=== PATIENT | female | born 1940 | race Caucasian/White ===

== ENCOUNTER 2016-12-27 11:57 | Emergency (ER) | payer OTHER ==
[~2016-12-27] VITALS: Ht 154.9 cm; Wt 50.0 kg
[~2016-12-27 11:57] MED LIST: AMBI10TA PO; COPAXONE SQ; FLUO20SO3 PO
[2016-12-27 12:05] VITALS: BP 130/60; PULSE 77; RESP 18; TEMP 97.9; O2SAT 96
--- NOTE | 2016-12-27 12:28 | PD ---
HPI Chief Complaint: Fall Time Seen by Provider: 12:04 Travel History International Travel<30 days: No Contact w/Intl Traveler<30days: No Traveled to known affect area: No History of Present Illness HPI The patient was seen and examined in the presence of the nurse. This patient has history of MS and Parkinson's and falls frequently. She has an unsteady gait chronically. Today she lost her balance and fell which is not at all unusual for her. She landed on her left hip. She complains of some left hip pain. She has history of bilateral hip replacement. She did not strike her head or neck. Complains of no head or neck pain. There was no LOC. Duration 2 hours. No alleviating factors. Severity is moderate PFSH Past Medical History Arthritis: No Asthma: No Autoimmune Disease: No Blood Disorders: No Anxiety: Yes Depression: No Heart Rhythm Problems: No Cancer: No Cardiovascular Problems: No High Cholesterol: No Chemotherapy: No Chest Pain: No Congestive Heart Failure: No COPD: No Cerebrovascular Accident: No Diabetes: No Diminished Hearing: No Endocrine: No Gastrointestinal Disorders: Yes GERD: Yes Glaucoma: No Genitourinary: No Headaches: No Hepatitis: No Hiatal Hernia: No Hypertension: Yes Immune Disorder: No Kidney Stones: No Musculoskeletal: Yes (MS) Neurologic: Yes Psychiatric: No Reproductive: No Respiratory: No Migraines: No Myocardial Infarction: No Radiation Therapy: No Renal Failure: No Seizures: No Sickle Cell Disease: No Sleep Apnea: No Thyroid Disease: No Ulcer: Yes Menopausal: Yes Past Surgical History Abdominal Surgery: Yes (hysterectomy,ruptured bowel) AICD: No Appendectomy: No Cardiac Surgery: No Cholecystectomy: Yes Ear Surgery: No Endocrine Surgery: No Eye Surgery: No Genitourinary Surgery: No Gynecologic Surgery: No Joint Replacement: Yes (HIP) Neurologic Surgery: No Oral Surgery: No Pacemaker: No Thoracic Surgery: No Other Surgery: Yes Social History Alcohol Use: No Tobacco Use: No Substance Use: No Allergies-Medications (Allergen,Severity, Reaction): Coded Allergies: Codeine (Verified Allergy, Severe, Hallucinations, 12/27/16) Reported Meds & Prescriptions Reported Meds & Active Scripts Active Reported Oxycodone (Oxycodone HCl) 5 Mg Cap 5 Mg PO Q4H PRN Baclofen 10 Mg Tab 10 Mg PO Q8HR PRN [Copaxone] 20 Mg SQ DAILY Review of Systems General / Constitutional: No: Fever Eyes: No: Visual changes HENT: No: Headaches Cardiovascular: No: Chest Pain or Discomfort Respiratory: No: Shortness of Breath Gastrointestinal: No: Abdominal Pain Genitourinary: No: Dysuria Musculoskeletal: Positive: Limited ROM, Pain Skin: No Rash Neurologic: Positive: Ataxia, No: Weakness Psychiatric: No: Depression Endocrine: No: Polydipsia Hematologic/Lymphatic: No: Easy Bruising Physical Exam Narrative GENERAL: Well-nourished, well-developed patient in no apparent distress. SKIN: Focused skin assessment reveals no rash and nodules. Skin is Warm and dry. HEAD: Atraumatic. Normocephalic. EYES: Pupils equal and round. No scleral icterus. No injection or drainage. ENT: No nasal bleeding or discharge. Mucous membranes pink and moist. NECK: Trachea midline. No JVD. CARDIOVASCULAR: Regular rate and rhythm. No murmur appreciated. RESPIRATORY: No accessory muscle use. Clear to auscultation. Breath sounds equal bilaterally. GASTROINTESTINAL: Abdomen soft, non-tender, nondistended. Hepatic and splenic margins not palpable. MUSCULOSKELETAL: The left leg is slightly inwardly rotated but patient states this is chronic since her last hip surgery. No clubbing. No cyanosis. No edema. No long bone tenderness NEUROLOGICAL: Awake and alert. No obvious cranial nerve deficits. Motor grossly within normal limits. Normal speech. PSYCHIATRIC: Appropriate mood and affect; insight and judgment normal. Data Data Last Documented VS Vital Signs Date Time Temp Pulse Resp B/P Pulse Ox O2 Delivery O2 Flow Rate FiO2 12/27/16 12:28 77 18 97 Room Air 12/27/16 12:05 97.9 130/60 Orders Hip, Lat Only W Ap Pelvis (12/27/16 ) MDM Medical Decision Making Medical Screen Exam Complete: Yes Emergency Medical Condition: Yes Medical Record Reviewed: Yes Differential Diagnosis Hip dislocation, pelvic fracture, femur fracture Narrative Course I have reviewed the patient's electronic medical record. I reviewed her pelvis x-ray which shows no fracture I Reviewed her left hip x-ray which shows no fracture dislocation Stable for outpatient follow-up She has both walker and wheelchair at home The patient was advised to follow up with their physician and return if they worsen. Diagnosis Primary Impression: Contusion of left hip, initial encounter Additional Instructions: The patient was advised to follow up with their physician and return if they worsen. Med/Other Pt SpecificInfo: Other Disposition: 01 DISCHARGE HOME Condition: Stable Cortes Eid MD Dec 27, 2016 12:28
--- NOTE | 2016-12-27 12:45 | RADRPT ---
EXAM DATE/TIME: 12/27/2016 12:31 This report includes an Addendum and supersedes previous reports for this exam. [facility] COMPARISON: No previous studies available for comparison. INDICATIONS : Left hip pain after fall today. MEDICAL HISTORY : None. SURGICAL HISTORY : Bilateral hip replacements. ENCOUNTER: Initial ACUITY: 1 day PAIN SCORE: 10/10 LOCATION: Left hip. FINDINGS: The patient is status post bilateral hip arthroplasty. The femoral and acetabular components are inta ct with no evidence of fracture or loosening. There is mild osteopenia. Patient is status post kyphop lasty at the L5 level. CONCLUSION: 1. Status post bilateral arthroplasty with no evidence of fracture or malalignment. Dread Man MD on December 27, 2016 at 12:43 Board Certified Radiologist. This report was verified electronically. ADDENDUM: Hairline nondisplaced fractures are identified through the left superior and inferior pubic rami. Hector Coleman MD on December 27, 2016 at 13:54 Board Certified Radiologist. This report was verified electronically.
[2016-12-27] MEDS ORDERED: BACL10TA PO (13:11)
[2016-12-27] MEDS ORDERED: OXYC1CAP PO (13:12)
[2016-12-27] MEDS ORDERED: AMBI10TA PO (13:14)
[2016-12-27] MEDS ORDERED: AMLO5TAB2 PO (13:14)
== END 2016-12-27 14:30 | disposition home or self-care (01) ==
LOC: NEPE 11:57
DX: S70.02XA Contusion of left hip, initial encounter (principal); G35 Multiple sclerosis; G20 Parkinson's disease; F41.9 Anxiety disorder, unspecified; K21.9 Gastro-esophageal reflux disease without esophagitis; I10 Essential (primary) hypertension; Z88.5 Allergy status to narcotic agent; Z79.899 Other long term (current) drug therapy; W18.30XA Fall on same level, unspecified, initial encounter
CPT/HCPCS: 73501; 99283

== ENCOUNTER 2017-05-21 13:40 | Inpatient (IN) | payer OTHER, MEDICARE ==
[2017-05-21] VITALS (7 sets, daily range): BP systolic 129–174; BP diastolic 59–84; PULSE 67–72; RESP 18–24; TEMP 98.1–99.5; O2SAT 94–99
[~2017-05-21] VITALS: Ht 160 cm; Wt 65.0 kg
[~2017-05-21 13:40] MED LIST changes: +AMLO5TAB2 PO; +BACL10TA PO; -FLUO20SO3 PO; +OXYC1CAP PO
--- NOTE | 2017-05-21 13:57 | PD ---
HPI Chief Complaint: Altered Mental Status Time Seen by Provider: 13:53 Travel History International Travel<30 days: No Contact w/Intl Traveler<30days: No Traveled to known affect area: No History of Present Illness HPI 76-year-old female with history of multiple sclerosis, Parkinson's, questionable history of dementia per EMS, presents via EMS for evaluation of altered mental status. History is only obtainable via EMS at this time. They report that the patient lives with her . Over the past 3 days she has been becoming increasingly difficult to arouse. Symptoms persisted and worsened and this is what prompted evaluation today. At this point in time the patient is making grunting noises, has obvious expiratory wheezing. PFSH Past Medical History Arthritis: No Asthma: No Autoimmune Disease: No Blood Disorders: No Anxiety: Yes Depression: No Heart Rhythm Problems: No Cancer: No Cardiovascular Problems: No High Cholesterol: No Chemotherapy: No Chest Pain: No Congestive Heart Failure: No COPD: Yes Cerebrovascular Accident: No Diabetes: No Diminished Hearing: No Endocrine: No Gastrointestinal Disorders: Yes GERD: Yes Glaucoma: No Genitourinary: No Headaches: No Hepatitis: No Hiatal Hernia: No Hypertension: Yes Immune Disorder: No Kidney Stones: No Musculoskeletal: Yes (MS) Neurologic: Yes Psychiatric: No Reproductive: No Respiratory: No Migraines: No Myocardial Infarction: No Radiation Therapy: No Renal Failure: No Seizures: No Sickle Cell Disease: No Sleep Apnea: No Thyroid Disease: No Ulcer: Yes Menopausal: Yes Past Surgical History Abdominal Surgery: Yes (ruptured bowel) AICD: No Appendectomy: No Cardiac Surgery: No Cholecystectomy: Yes Ear Surgery: No Endocrine Surgery: No Eye Surgery: No Genitourinary Surgery: No Gynecologic Surgery: No Joint Replacement: Yes (HIP) Neurologic Surgery: No Oral Surgery: No Pacemaker: No Thoracic Surgery: No Other Surgery: Yes Social History Alcohol Use: No Tobacco Use: No Substance Use: No Allergies-Medications (Allergen,Severity, Reaction): Coded Allergies: codeine (Unverified Allergy, Severe, Hallucinations, 12/30/16) Reported Meds & Prescriptions Reported Meds & Active Scripts Active Reported Amlodipine (Amlodipine Besylate) 5 Mg Tab 5 Mg PO DAILY Ambien (Zolpidem Tartrate) 10 Mg Tab 10 Mg PO HS PRN Oxycodone (Oxycodone HCl) 5 Mg Cap 5 Mg PO Q4H PRN Baclofen 10 Mg Tab 10 Mg PO Q8HR PRN [Copaxone] 20 Mg SQ DAILY Review of Systems ROS Limitations: Clinical Condition, Altered Mental Status Except as stated in HPI: all other systems reviewed are Neg Physical Exam Exam Limitations: Clinical Condition, Altered Mental Status Narrative GENERAL: Well-developed well-nourished female in no acute distress SKIN: Warm and dry. HEAD: Atraumatic. Normocephalic. EYES: Pupils pinpoint and round. No scleral icterus. No injection or drainage. ENT: No nasal bleeding or discharge. Mucous membranes pink and moist. NECK: Trachea midline. No JVD. CARDIOVASCULAR: Regular rate and rhythm. No murmur appreciated. RESPIRATORY: No accessory muscle use. Expiratory wheezing. Breath sounds equal bilaterally. GASTROINTESTINAL: Abdomen soft, non-tender, nondistended. Hepatic and splenic margins not palpable. MUSCULOSKELETAL: No obvious deformities. No clubbing. No cyanosis. No edema. NEUROLOGICAL: Obtunded eyes are spontaneously opened but the patient does not respond to painful or verbal stimuli. Data Data Last Documented VS Vital Signs Date Time Temp Pulse Resp B/P (MAP) Pulse Ox O2 Delivery O2 Flow Rate FiO2 05/21/17 14:22 94 21 05/21/17 14:11 64 19 Room Air 05/21/17 14:06 99.5 05/21/17 13:55 148/67 (94) Orders Orders Electrocardiogram (05/21/17 13:53) Complete Blood Count With Diff (05/21/17 13:53) Comprehensive Metabolic Panel (05/21/17 13:53) Creatine Kinase (Cpk) (05/21/17 13:53) Prothrombin Time / Inr (Pt) (05/21/17 13:53) Act Partial Throm Time (Ptt) (05/21/17 13:53) Troponin I (05/21/17 13:53) Urinalysis - C+S If Indicated (05/21/17 13:53) Chest, Single Ap (05/21/17 13:53) Ct Brain W/O Iv Contrast(Rout) (05/21/17 13:53) Blood Glucose (05/21/17 13:53) Ecg Monitoring (05/21/17 13:53) Iv Access Insert/Monitor (05/21/17 13:53) Oximetry (05/21/17 13:53) Sodium Chloride 0.9% Flush (Ns Flush) (05/21/17 14:00) Albuterol-Ipratropium Neb (Duoneb Neb) (05/21/17 14:00) Lactic Acid Sepsis Protocol (05/21/17 14:00) Blood Culture (05/21/17 14:00) Naloxone Inj (Narcan Inj) (05/21/17 15:00) Drug Screen, Random Urine (05/21/17 15:07) Ceftriaxone Inj (Rocephin Inj) (05/21/17 16:00) Azithromycin Inj (Zithromax Inj) (05/21/17 16:00) Admit Order (Ed Use Only) (05/21/17 15:47) Labs Laboratory Tests Test 05/21/17 14:30 White Blood Count 5.4 TH/MM3 Red Blood Count 3.67 MIL/MM3 Hemoglobin 12.5 GM/DL Hematocrit 36.5 % Mean Corpuscular Volume 99.5 FL Mean Corpuscular Hemoglobin 33.9 PG Mean Corpuscular Hemoglobin Concent 34.1 % Red Cell Distribution Width 15.5 % Platelet Count 237 TH/MM3 Mean Platelet Volume 8.5 FL Neutrophils (%) (Auto) 53.8 % Lymphocytes (%) (Auto) 19.6 % Monocytes (%) (Auto) 18.6 % Eosinophils (%) (Auto) 6.9 % Basophils (%) (Auto) 1.1 % Neutrophils # (Auto) 2.9 TH/MM3 Lymphocytes # (Auto) 1.1 TH/MM3 Monocytes # (Auto) 1.0 TH/MM3 Eosinophils # (Auto) 0.4 TH/MM3 Basophils # (Auto) 0.1 TH/MM3 CBC Comment DIFF FINAL Differential Comment Prothrombin Time 9.8 SEC Prothromb Time International Ratio 1.0 RATIO Activated Partial Thromboplast Time 26.2 SEC Blood Urea Nitrogen 21 MG/DL Creatinine 1.44 MG/DL Random Glucose 108 MG/DL Total Protein 7.0 GM/DL Albumin 3.8 GM/DL Calcium Level 9.2 MG/DL Alkaline Phosphatase 77 U/L Aspartate Amino Transf (AST/SGOT) 30 U/L Alanine Aminotransferase (ALT/SGPT) 26 U/L Total Bilirubin 0.3 MG/DL Sodium Level 141 MEQ/L Potassium Level 4.5 MEQ/L Chloride Level 108 MEQ/L Carbon Dioxide Level 26.0 MEQ/L Anion Gap 7 MEQ/L Estimat Glomerular Filtration Rate 35 ML/MIN Lactic Acid Level 1.7 mmol/L Total Creatine Kinase 128 U/L Troponin I LESS THAN 0.02 NG/ML MDM Medical Decision Making Medical Screen Exam Complete: Yes Emergency Medical Condition: Yes Medical Record Reviewed: Yes Interpretation(s) CONCLUSION: 1. Mild cerebral and she and periventricular white matter small vessel ischemic changes bilaterally. 2. No acute infarct, acute hemorrhage, mass effect or extra axial fluid collections. Differential Diagnosis CVA, intracranial hemorrhage, sepsis, dehydration, electrolyte abnormality, polypharmacy Narrative Course The patient was placed on ECG monitoring pulse oximetry. Twelve-lead EKG was obtained. Shortly after the patient arrived her arrived. He provides additional history. He reports that 2 days ago she was acting combative and agitated. When she woke up this morning she was much more lethargic and not responding to verbal stimuli. Once the medication list was available it appears the patient is on multiple medications with sedative properties including baclofen, Percocet, Ativan, Ambien. The patient was given Narcan with some increase in mental status, now responding to painful stimuli but still not verbally communicative. Lab work is been reviewed. Chest x-ray reveals possible sided pneumonia versus atelectasis. The patient was given IV Rocephin and azithromycin. She is being admitted for altered mental status, pneumonia, polypharmacy. Diagnosis Primary Impression: Altered mental status Additional Impressions: Pneumonia Polypharmacy Admitting Information Admitting Physician Requests: Admit Hieu Martinez May 21, 2017 13:57
[2017-05-21] MEDS ORDERED: SODIUM CHLORIDE 0.9% FLUSH 10 ML FLUSH IV FLUSH PRN (14:00)
[2017-05-21] MEDS: RESP: ALBUTEROL 2.5 MG/IPRATROPIUM 0.5 MG NEB (SCH) INH (14:18)
[2017-05-21 14:54] LABS: AUTOMATED NEUTROPHIL # 2.9 TH/MM3 (1.8-7.7); BASOPHIL # 0.1 TH/MM3 (0-0.2); BASOPHIL % 1.1 % (0.0-2.0); EOSINOPHIL # 0.4 TH/MM3 (0-0.4); EOSINOPHIL % 6.9 % (0.0-4.0); HEMATOCRIT 36.5 % (35.0-46.0); HEMOGLOBIN 12.5 GM/DL (11.6-15.3); LYMPH % 19.6 % (9.0-44.0); LYMPHOCYTE # 1.1 TH/MM3 (1.0-4.8); MEAN CELL VOLUME 99.5 FL (80.0-100.0); MEAN CORPUSCULAR HEMOGLOBIN 33.9 PG (27.0-34.0); MEAN CORPUSCULAR HGB CONC 34.1 % (32.0-36.0); MEAN PLATELET VOLUME 8.5 FL (7.0-11.0); MONO % 18.6 % (0.0-8.0); NEUT % 53.8 % (16.0-70.0); PLATELET COUNT 237 TH/MM3 (150-450); RED BLOOD COUNT 3.67 MIL/MM3 (4.00-5.30); RED CELL DISTRIBUTION WIDTH 15.5 % (11.6-17.2); WHITE BLOOD COUNT 5.4 TH/MM3 (4.0-11.0)
--- NOTE | 2017-05-21 14:55 | RADRPT ---
EXAM DATE/TIME: 05/21/2017 14:35 CORRECTION Corrected on: May 23, 2017; [facility] COMPARISON: No previous studies available for comparison. INDICATIONS : Altered mental status started two ago,patient is obtunded,pupiles do not react to light. RADIATION DOSE: 33.67 CTDIvol (mGy) MEDICAL HISTORY : Hypertension. Chronic obstructive pulmonary disease. Multiple sclerosis. SURGICAL HISTORY : None. ENCOUNTER: Initial ACUITY: 2 days PAIN SCALE: Non-responsive LOCATION: cranial TECHNIQUE: Multiple contiguous axial images were obtained of the head. Using automated exposure control and adj ustment of the mA and/or kV according to patient size, radiation dose was kept as low as reasonably a chievable to obtain optimal diagnostic quality images. DICOM format image data is available electro nically for review and comparison. FINDINGS: CEREBRUM: Mild cerebral atrophy is noted. Mild periventricular white matter small vessel ischemic changes are n oted bilaterally. No evidence of midline shift, mass lesion, hemorrhage or acute infarction. No extr a-axial fluid collections are seen. POSTERIOR FOSSA: The cerebellum and brainstem are intact. The 4th ventricle is midline. The cerebellopontine angle i s unremarkable. EXTRACRANIAL: The visualized portion of the orbits is intact. SKULL: The calvaria is intact. No evidence of skull fracture. CONCLUSION: 1. Mild cerebral atrophy and periventricular white matter small vessel ischemic changes bilaterally. 2. No acute infarct, acute hemorrhage, mass effect or extra axial fluid collections. Abdoulaye Lopez MD on May 21, 2017 at 14:51 Board Certified Radiologist. This report was verified electronically. Abdoulaye Lopez MD on May 23, 2017 at 11:50 Board Certified Radiologist. This report was verified electronically.
[2017-05-21] MEDS ORDERED: NALOXONE HCL 2 MG/2 ML VIAL IV PUSH ONE (15:00)
--- NOTE | 2017-05-21 15:08 | RADRPT ---
EXAM DATE/TIME: 05/21/2017 13:56 [facility] COMPARISON: No previous studies available for comparison. INDICATIONS : Wheezing MEDICAL HISTORY : Non-responsive SURGICAL HISTORY : Billateral hip replacements ENCOUNTER: Initial ACUITY: 1 day PAIN SCORE: Non-responsive. LOCATION: chest FINDINGS: Minimal streakiness is noted within the left lung base consistent with atelectasis and/or mild infilt rate. The right lung is clear. The heart is normal. Severe arthritic changes are noted involving the right shoulder joint with deformity of the right humeral head noted. CONCLUSION: 1. Minimal streakiness within left lung base consistent with atelectasis fracture or mild infiltrate. 2. 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 Abdoulaye Lopez MD on May 21, 2017 at 15:04 Board Certified Radiologist. This report was verified electronically.
[2017-05-21 15:21] LABS: PROTHROMBIN TIME - PATIENT 9.8 SEC (9.8-11.6)
[2017-05-21 15:26] LABS: ALBUMIN 3.8 GM/DL (3.4-5.0); ALKALINE PHOSPHATASE 77 U/L (45-117); ALT (GPT) 26 U/L (10-53); AST (GOT) 30 U/L (15-37); BLOOD UREA NITROGEN 21 MG/DL (7-18); CALCIUM 9.2 MG/DL (8.5-10.1); CHLORIDE 108 MEQ/L (98-107); CREATININE 1.44 MG/DL (0.50-1.00); GLOMERULAR FILTRATION RATE 35 ML/MIN (>89); GLUCOSE,RANDOM 108 MG/DL (74-106); SODIUM (NA) 141 MEQ/L (136-145); TOTAL BILIRUBIN ADULT 0.3 MG/DL (0.2-1.0); TROPONIN I LESS THAN 0.02 NG/ML (0.02-0.05)
[2017-05-21] MEDS ORDERED: ONDANSETRON HCL 4 MG/2 ML VIAL IVP PRN (16:00)
[2017-05-21] MEDS ORDERED: cefTRIAXone INJ 1,000 MG in SODIUM CHLORIDE 0.9% INJ 100 ML IV ONE (16:00)
[2017-05-21] MEDS ORDERED: AZITHROMYCIN INJ 500 MG in SODIUM CHLOR 0.9% 250 ML INJ 250 ML IV ONE (16:00)
[2017-05-21] MEDS ORDERED: ACETAMINOPHEN 325 MG TAB PO PRN (16:00)
[2017-05-21] MEDS ORDERED: MAGNESIUM HYDROXIDE SUSP 30 ML CUP PO PRN (16:00)
[2017-05-21] MEDS ORDERED: LACTULOSE SYRUP 20 GM/30 ML CUP PO PRN (16:00)
[2017-05-21] MEDS ORDERED: NALOXONE HCL 0.4 MG/ML AMP IV PUSH PRN (16:00)
[2017-05-21] MEDS ORDERED: BISACODYL 10 MG SUPP RECTAL PRN (16:00)
[2017-05-21] MEDS ORDERED: SENNOSIDES 8.6 MG TAB PO PRN (16:00)
[2017-05-21] MEDS ORDERED: RESP: ALBUTEROL 2.5 MG/IPRATROPIUM 0.5 MG NEB (PRN) NEB (16:15)
--- NOTE | 2017-05-21 16:21 | HHI.HP ---
HPI Service [facility] Hospitalists Primary Care Physician Philly Curry DO Admission Diagnosis altered mental status, pneumonia Diagnoses: Chief Complaint: Altered mental status Travel History International Travel<30 Days: No Contact w/Intl Traveler <30 Da: No Traveled to Known Affected Are: No History of Present Illness This is a 76 yo female with a PMHX significant for MS, Parkinson's, HTN, COPD, GERD, OA and DDD lumbar spine who was brought into [facility] ED by EMS due to altered mental status. Patient is unable to provide me with any past medical history due to significant cognitive impairment and no family is available at the bedside therefore history is obtained from discussion with the ED physician and review of electronic medical record. Reportedly, patient lives with her and 2 days ago she became agitated and combative. This morning, patient was much more lethargic and not responding to verbal stimuli. She was found to have multiple sedating medications on her medication list including baclofen, Percocet, Ativan and Ambien. Patient was given Narcan in the ED with some improvement in her mental status however she is still not communicative. Chest x-ray was obtained which showed a possible pneumonia versus atelectasis. UA and UDS are pending. CT of the head showed no acute process. White count was normal at 5.4. She was noted to have acute kidney injury with creatinine of 1.44 and GFR of 35. Lactic acid is 1.7. Review of Systems ROS Limitations: Altered Mental Status Except as stated in HPI: all other systems reviewed are Neg Unable to complete 10 point review of systems due to patients cognitive impairment Past Family Social History Past Medical History MS Parkinson's Questionable dementia HTN COPD GERD OA DDD lumbar spine Past Surgical History Bilateral hip replacements Kyphoplasty L5 s/p colostomy with subsequent reversal Cholecystectomy ORIF right distal radius fracture Reported Medications Amlodipine (Amlodipine Besylate) 5 Mg Tab 5 Mg PO DAILY Ambien (Zolpidem Tartrate) 10 Mg Tab 10 Mg PO HS PRN Oxycodone (Oxycodone HCl) 5 Mg Cap 5 Mg PO Q4H PRN Baclofen 10 Mg Tab 10 Mg PO Q8HR PRN [Copaxone] 20 Mg SQ DAILY Ranitidine 150mg one po BID Tamsulosin 0.4mg po daily Bupropion 75mg po BID Lorazepam one tab po TID prn Percocet 10/325mg po q 6h prn Prolia Anoro Ellipta 62.5mcg/25mcg 1 puff daily Allergies: Coded Allergies: codeine (Unverified Allergy, Severe, Hallucinations, 12/30/16) Active Ordered Medications Current Medications Medications (Trade) Dose Ordered Sig/Taurus Route Start Time Stop Time Status Last Admin (NS Flush) 2 ml UNSCH PRN IV FLUSH 05/21/17 14:00 Ceftriaxone Sodium 1000 mg/ Sodium Chloride 100 ml @ 200 mls/hr ONCE ONCE IV 05/21/17 16:00 05/21/17 16:29 Azithromycin 500 mg/Sodium Chloride 250 ml @ 250 mls/hr ONCE ONCE IV 05/21/17 16:00 05/21/17 16:59 Sodium Chloride 1,000 ml @ 75 mls/hr [id number] IV 05/21/17 15:47 UNV (NS Flush) 2 ml BID IV FLUSH 05/21/17 21:00 UNV (Tylenol) 650 mg Q4H PRN PO 05/21/17 16:00 UNV (Zofran Inj) 4 mg Q6H PRN IVP 05/21/17 16:00 UNV (Heparin Inj) 5,000 units Q8H SQ 05/21/17 16:00 UNV (Narcan Inj) 0.4 mg UNSCH PRN IV PUSH 05/21/17 16:00 UNV (Francheska-Colace) 1 tab BID PO 05/21/17 21:00 UNV (Milk Of Magnesia Liq) 30 ml Q12H PRN PO 05/21/17 16:00 UNV (Senokot) 17.2 mg Q12H PRN PO 05/21/17 16:00 UNV (Dulcolax Supp) 10 mg DAILY PRN RECTAL 05/21/17 16:00 UNV (Lactulose Liq) 30 ml DAILY PRN PO 05/21/17 16:00 UNV (Norvasc) 5 mg DAILY PO 05/22/17 09:00 UNV Non-Formulary Medication 20 mg DAILY SQ 05/22/17 09:00 UNV Family History Unable to obtain due to patient's cognitive impairment Social History Reportedly, patient has no history of tobacco use, alcohol consumption or illicit drug use. Physical Exam Vital Signs Vital Signs Date Time Temp Pulse Resp B/P (MAP) Pulse Ox O2 Delivery O2 Flow Rate FiO2 05/21/17 14:22 94 21 05/21/17 14:11 64 19 96 Room Air 05/21/17 14:06 96 Room Air 05/21/17 14:06 99.5 05/21/17 13:55 70 18 148/67 (94) 99 Physical Exam GENERAL: This is a thin, frail, elderly female patient. Altered mental status. She does not follow any commands. SKIN: No rashes, ecchymoses or lesions. Cool and dry. HEAD: Atraumatic. Normocephalic. No temporal or scalp tenderness. EYES: Pupils equal round and reactive. Extraocular motions intact. No scleral icterus. No injection or drainage. ENT: Nose without bleeding, purulent drainage or septal hematoma. Throat without erythema, tonsillar hypertrophy or exudate. Uvula midline. Airway patent. Very dry mucous membranes. NECK: Trachea midline. Supple, nontender, no meningeal signs. CARDIOVASCULAR: Regular rate and rhythm without murmurs, gallops, or rubs. RESPIRATORY: Clear to auscultation but difficult to examine due to poor effort. GASTROINTESTINAL: Abdomen soft, non-tender, nondistended. No hepato-splenomegaly , or palpable masses. No guarding. MUSCULOSKELETAL: Extremities without clubbing, cyanosis, or edema. No joint tenderness, effusion, or edema noted. No calf tenderness. NEUROLOGICAL: Awake. Confused. Does not follow any commands. Lying in bed with eyes open audibly grunting with intermittent spastic movements. Laboratory Laboratory Tests Test 05/21/17 14:30 White Blood Count 5.4 Red Blood Count 3.67 Hemoglobin 12.5 Hematocrit 36.5 Mean Corpuscular Volume 99.5 Mean Corpuscular Hemoglobin 33.9 Mean Corpuscular Hemoglobin Concent 34.1 Red Cell Distribution Width 15.5 Platelet Count 237 Mean Platelet Volume 8.5 Neutrophils (%) (Auto) 53.8 Lymphocytes (%) (Auto) 19.6 Monocytes (%) (Auto) 18.6 Eosinophils (%) (Auto) 6.9 Basophils (%) (Auto) 1.1 Neutrophils # (Auto) 2.9 Lymphocytes # (Auto) 1.1 Monocytes # (Auto) 1.0 Eosinophils # (Auto) 0.4 Basophils # (Auto) 0.1 CBC Comment DIFF FINAL Differential Comment Prothrombin Time 9.8 Prothromb Time International Ratio 1.0 Activated Partial Thromboplast Time 26.2 Blood Urea Nitrogen 21 Creatinine 1.44 Random Glucose 108 Total Protein 7.0 Albumin 3.8 Calcium Level 9.2 Alkaline Phosphatase 77 Aspartate Amino Transf (AST/SGOT) 30 Alanine Aminotransferase (ALT/SGPT) 26 Total Bilirubin 0.3 Sodium Level 141 Potassium Level 4.5 Chloride Level 108 Carbon Dioxide Level 26.0 Anion Gap 7 Estimat Glomerular Filtration Rate 35 Lactic Acid Level 1.7 Total Creatine Kinase 128 Troponin I LESS THAN 0.02 Date/Time Source Procedure Growth Status 05/21/17 14:30 Blood Peripheral Aerobic Blood Culture Pending Received 05/21/17 14:30 Blood Peripheral Anaerobic Blood Culture Pending Received Result Diagram: 05/21/17 1430 05/21/17 1430 Imaging Current Medications Medications (Trade) Dose Ordered Sig/Taurus Route Start Time Stop Time Status Last Admin (NS Flush) 2 ml UNSCH PRN IV FLUSH 05/21/17 14:00 Sodium Chloride 1,000 ml @ 75 mls/hr [id number] IV 05/21/17 16:30 (NS Flush) 2 ml BID IV FLUSH 05/21/17 21:00 (Tylenol) 650 mg Q4H PRN PO 05/21/17 16:00 UNV (Zofran Inj) 4 mg Q6H PRN IVP 05/21/17 16:00 UNV (Heparin Inj) 5,000 units Q8H SQ 05/21/17 16:00 UNV (Narcan Inj) 0.4 mg UNSCH PRN IV PUSH 05/21/17 16:00 (Francheska-Colace) 1 tab BID PO 05/21/17 21:00 (Milk Of Magnesia Liq) 30 ml Q12H PRN PO 05/21/17 16:00 (Senokot) 17.2 mg Q12H PRN PO 05/21/17 16:00 (Dulcolax Supp) 10 mg DAILY PRN RECTAL 05/21/17 16:00 (Lactulose Liq) 30 ml DAILY PRN PO 05/21/17 16:00 UNV (Norvasc) 5 mg DAILY PO 05/22/17 09:00 Non-Formulary Medication 20 mg DAILY SQ 05/22/17 09:00 UNV (Duoneb Neb) 1 ampule Q4HR NEB PRN NEB 05/21/17 16:15 UNV (Vasotec Inj) 1.25 mg Q6H PRN IV PUSH 05/21/17 16:30 Caprini VTE Risk Assessment Caprini VTE Risk Assessment: Mod/High Risk (score >= 2) Caprini Risk Assessment Model Point Value = 1 Point Value = 2 Point Value = 3 Point Value = 5 Age 41-60 Minor surgery BMI > 25 kg/m2 Swollen legs Varicose veins or History of unexplained or recurrent spontaneous Oral contraceptives or hormone replacement Sepsis (< 1 month) Serious lung disease, including pneumonia (< 1 month) Abnormal pulmonary function Acute myocardial infarction Congestive heart failure (< 1 month) History of inflammatory bowel disease Medical patient at bed rest Age 61-74 Arthroscopic surgery Major open surgery (> 45 min) Laparoscopic surgery (> 45 min) Malignancy Confined to bed (> 72 hours) Immobilizing plaster cast Central venous access Age >= 75 History of VTE Family history of VTE Factor V Leiden Prothrombin 22125G Lupus anticoagulant Anticardiolipin antibodies Elevated serum homocysteine Heparin-induced thrombocytopenia Other congenital or acquired thrombophilia Stroke (< 1 month) Elective arthroplasty Hip, pelvis, or leg fracture Acute spinal cord injury (< 1 month) Prophylaxis Regimen Total Risk Factor Score Risk Level Prophylaxis Regimen 0-1 Low Early ambulation 2 Moderate Order ONE of the following: *Sequential Compression Device (SCD) *Heparin 5000 units SQ BID 3-4 Higher Order ONE of the following medications: *Heparin 5000 units SQ TID *Enoxaparin/Lovenox 40 mg SQ daily (WT < 150 kg, CrCl > 30 mL/min) *Enoxaparin/Lovenox 30 mg SQ daily (WT < 150 kg, CrCl > 10-29 mL/min) *Enoxaparin/Lovenox 30 mg SQ BID (WT < 150 kg, CrCl > 30 mL/min) AND/OR *Sequential Compression Device (SCD) 5 or more Highest Order ONE of the following medications: *Heparin 5000 units SQ TID (Preferred with Epidurals) *Enoxaparin/Lovenox 40 mg SQ daily (WT < 150 kg, CrCl > 30 mL/min) *Enoxaparin/Lovenox 30 mg SQ daily (WT < 150 kg, CrCl > 10-29 mL/min) *Enoxaparin/Lovenox 30 mg SQ BID (WT < 150 kg, CrCl > 30 mL/min) AND *Sequential Compression Device (SCD) Assessment and Plan Assessment and Plan This is a 76 yo female with a PMHX significant for MS, Parkinson's, HTN, COPD, GERD, OA and DDD lumbar spine who was brought into [facility] ED by EMS due to altered mental status. AMS/Encephalopathy likely secondary to medication side effect as patient on multiple sedating medications, dehydration and possible infection CT Head without any acute process, images personally reviewed UDS pending UA pending hold all sedating medications IVF NPO for now continuous cardiac monitoring Neuro checks obtain TSH, RPR, B12 and ammonia level Follow-up on blood culture results Possible CAP CXR shows minimal streakiness within left lung base consistent with atelectasis fracture or mild infiltrate, images personally reviewed Patient given IV Ceftriaxone and Azithromycin in the ED. Continue with IV ceftriaxone for now. IS at bedside, encourage hourly use Duonebs scheduled monitor respiratory status supplemental oxygen to maintain O2 sats above 92% HAN Suspect secondary dehydration Avoid nephrotoxic agents IV fluids Continue to monitor kidney function HTN adequate control at present resume home antihypertensives once med rec updated monitor BP and adjust treatment as indicated MS Patient on Copaxone at home Follows with Dr. Nuñez of neurology History of Parkinson's per review of medical record No Parkinson's meds on patient's medication list COPD DuoNeb's Resume home MDIs Monitor his status GERD Will resume home meds once able to tolerate po DVT prophylaxis Heparin sq Code Status full code Discussed Condition With ED physician, Dr. De La Rosa Attending Statement The exam, history, and the medical decision-making described in the above note were completed with the assistance of the mid-level provider. I reviewed and agree with the findings presented. I attest that I had a [id number] encounter with the patient on the same day, and personally performed and documented my assessment and findings in the medical record. Venita Dallas May 21, 2017 16:21 Yobani De La Rosa DO May 22, 2017 08:49
--- NOTE | 2017-05-21 16:27 | PD ---
Physical Exam Date Seen by Provider: May 21, 2017 Time Seen by Provider: 15:00 Narrative I, Dr. Ramey have reviewed the advance practice practitioner's documentation and am in agreement, met with the patient face to face, made the diagnosis, and the medical decision making was done by me. *My assessment and Findings: Patient seen and evaluated with PA, please see PA note for further details. She is coming in according to the for increased disorientation, grunting today, and I was not able to get much more history from her. She appeared somewhat lethargic and the ER, and I have talked to the patient's regarding CODE STATUS and he states that at this point he wants her to be full code, is fairly anxious about whether he would be willing to make her DNR status right now. She initially was having very poor gag reflex, was given Narcan and became more alert but is still quite confused. She has no focal neurological deficits. Pulmonary exam exhibits some mild wheezing. Especially at the left base. The rest of exam is fairly noncontributory. Initial EKG shows normal sinus rhythm at a rate of 70 bpm. There is artifact due to patient movement. Laboratory Tests Test 05/21/17 14:30 Red Blood Count 3.67 MIL/MM3 (4.00-5.30) Monocytes (%) (Auto) 18.6 % (0.0-8.0) Eosinophils (%) (Auto) 6.9 % (0.0-4.0) Monocytes # (Auto) 1.0 TH/MM3 (0-0.9) Blood Urea Nitrogen 21 MG/DL (7-18) Creatinine 1.44 MG/DL (0.50-1.00) Random Glucose 108 MG/DL (74-106) Chloride Level 108 MEQ/L (98-107) Estimat Glomerular Filtration Rate 35 ML/MIN (>89) Troponin I LESS THAN 0.02 NG/ML Last [address] 05/21/17 [id number] Signed Impressions: Service Date/Time: May 14:35 - CONCLUSION: 1. Mild cerebral and she and periventricular white matter small vessel ischemic changes bilaterally. 2. No acute infarct, acute hemorrhage, mass effect or extra axial fluid collections. Abdoulaye Lopez MD Chest X-Ray 05/21/17 [id number] Signed Impressions: Service Date/Time: May 13:56 - CONCLUSION: 1. Minimal streakiness within left lung base consistent with atelectasis fracture or mild infiltrate. 2. 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 Abdoulaye Lopez MD Labwork and CAT scan did not show any signs of acute processes. There is some signs of minimal left base atelectasis versus mild infiltrate and considering symptoms, and patient's states she has been coughing, IV antibiotics are initiated as precaution for possible developing pneumonia which could be contributing to her current symptoms. The patient's states that she apparently has been seen by her neurologist Dr. Nuñez and also by her psychiatrist, and they are considering whether her dementia may be causing some of her symptoms. At this point, my plan would be to admit the patient for further evaluation and treatment. Case was discussed with Dr. De La Rosa for admission. Data Data Last Documented VS Vital Signs Date Time Temp Pulse Resp B/P (MAP) Pulse Ox O2 Delivery O2 Flow Rate FiO2 05/21/17 14:22 94 21 05/21/17 14:11 64 19 Room Air 05/21/17 14:06 99.5 05/21/17 13:55 148/67 (94) Orders Orders Electrocardiogram (05/21/17 13:53) Complete Blood Count With Diff (05/21/17 13:53) Comprehensive Metabolic Panel (05/21/17 13:53) Creatine Kinase (Cpk) (05/21/17 13:53) Prothrombin Time / Inr (Pt) (05/21/17 13:53) Act Partial Throm Time (Ptt) (05/21/17 13:53) Troponin I (05/21/17 13:53) Urinalysis - C+S If Indicated (05/21/17 13:53) Chest, Single Ap (05/21/17 13:53) Ct Brain W/O Iv Contrast(Rout) (05/21/17 13:53) Blood Glucose (05/21/17 13:53) Ecg Monitoring (05/21/17 13:53) Iv Access Insert/Monitor (05/21/17 13:53) Oximetry (05/21/17 13:53) Sodium Chloride 0.9% Flush (Ns Flush) (05/21/17 14:00) Albuterol-Ipratropium Neb (Duoneb Neb) (05/21/17 14:00) Lactic Acid Sepsis Protocol (05/21/17 14:00) Blood Culture (05/21/17 14:00) Naloxone Inj (Narcan Inj) (05/21/17 15:00) Drug Screen, Random Urine (05/21/17 15:07) Ceftriaxone Inj (Rocephin Inj) (05/21/17 16:00) Azithromycin Inj (Zithromax Inj) (05/21/17 16:00) Admit Order (Ed Use Only) (05/21/17 15:47) Labs Laboratory Tests Test 05/21/17 14:30 White Blood Count 5.4 TH/MM3 Red Blood Count 3.67 MIL/MM3 Hemoglobin 12.5 GM/DL Hematocrit 36.5 % Mean Corpuscular Volume 99.5 FL Mean Corpuscular Hemoglobin 33.9 PG Mean Corpuscular Hemoglobin Concent 34.1 % Red Cell Distribution Width 15.5 % Platelet Count 237 TH/MM3 Mean Platelet Volume 8.5 FL Neutrophils (%) (Auto) 53.8 % Lymphocytes (%) (Auto) 19.6 % Monocytes (%) (Auto) 18.6 % Eosinophils (%) (Auto) 6.9 % Basophils (%) (Auto) 1.1 % Neutrophils # (Auto) 2.9 TH/MM3 Lymphocytes # (Auto) 1.1 TH/MM3 Monocytes # (Auto) 1.0 TH/MM3 Eosinophils # (Auto) 0.4 TH/MM3 Basophils # (Auto) 0.1 TH/MM3 CBC Comment DIFF FINAL Differential Comment Prothrombin Time 9.8 SEC Prothromb Time International Ratio 1.0 RATIO Activated Partial Thromboplast Time 26.2 SEC Blood Urea Nitrogen 21 MG/DL Creatinine 1.44 MG/DL Random Glucose 108 MG/DL Total Protein 7.0 GM/DL Albumin 3.8 GM/DL Calcium Level 9.2 MG/DL Alkaline Phosphatase 77 U/L Aspartate Amino Transf (AST/SGOT) 30 U/L Alanine Aminotransferase (ALT/SGPT) 26 U/L Total Bilirubin 0.3 MG/DL Sodium Level 141 MEQ/L Potassium Level 4.5 MEQ/L Chloride Level 108 MEQ/L Carbon Dioxide Level 26.0 MEQ/L Anion Gap 7 MEQ/L Estimat Glomerular Filtration Rate 35 ML/MIN Lactic Acid Level 1.7 mmol/L Total Creatine Kinase 128 U/L Troponin I LESS THAN 0.02 NG/ML MDM Medical Record Reviewed: Yes Supervised Visit with CARMEN: Yes Diagnosis Primary Impression: Altered mental status Additional Impressions: Polypharmacy Pneumonia Admitting Information Admitting Physician Requests: Admit Dino Carvajal MD May 21, 2017 16:27
[2017-05-21] MEDS ORDERED: ENALAPRILAT 1.25 MG/ML VIAL IV PUSH PRN (16:30)
[2017-05-21] MEDS ORDERED: TAMS0.4C4 PO (17:01)
[2017-05-21] MEDS ORDERED: CALC1TAB12 PO (17:01)
[2017-05-21] MEDS ORDERED: AZIT250T3 PO (17:01)
[2017-05-21] MEDS ORDERED: RANI150T PO (17:01)
[2017-05-21] MEDS ORDERED: ACYC400T PO (17:01)
[2017-05-21] MEDS ORDERED: UMEC1AER INH (17:01)
[2017-05-21] MEDS ORDERED: CYAN100025 SL (17:01)
[2017-05-21] MEDS ORDERED: DULO1CAP3 PO (17:01)
[2017-05-21] MEDS ORDERED: IPRASOL INH (17:01)
[2017-05-21] MEDS ORDERED: DONE10TA7 PO (17:01)
[2017-05-21] MEDS ORDERED: AMLO5CAP PO (17:01)
[2017-05-21] MEDS ORDERED: BUPR75TA PO (17:01)
[2017-05-21] MEDS ORDERED: ONDA4TAB15 (17:01)
[2017-05-21] MEDS ORDERED: CYAN1000P IM (17:01)
[2017-05-21] MEDS ORDERED: DENO60P SQ (17:01)
[2017-05-21] MEDS ORDERED: LACT10SO PO (17:01)
[2017-05-21] MEDS ORDERED: TYLE325T PO (17:01)
[2017-05-21] MEDS ORDERED: DICL1CAP4 PO (17:01)
[2017-05-21] MEDS ORDERED: OXYC1TAB36 PO (17:01)
[2017-05-21 17:32] LABS: BACTERIA, URINE RARE /hpf; BILIRUBIN, URINE NEG (NEG); BLOOD, URINE NEG (NEG); GLUCOSE,URINE NEG (NEG); HYALINE CAST, URINE 3 /lpf (RARE); KETONE, URINE NEG (NEG); NITRITE,URINE NEG (NEG); URINE COLOR YELLOW (YELLW/STRAW); URINE LEUKOCYTE ESTERASE MOD (NEG)
[2017-05-21 18:21] LABS: FOLATE 18.2 NG/ML (3.1-17.5)
[2017-05-21 18:29] LABS: MAGNESIUM 2.3 MG/DL (1.5-2.5); PHOSPHORUS 3.7 MG/DL (2.5-4.9)
[2017-05-21] MEDS: RESP: ALBUTEROL 2.5 MG/IPRATROPIUM 0.5 MG NEB (SCH) NEB (19:21)
[2017-05-21] MEDS: DOCUSATE SODIUM 50 MG/SENNA 8.6 MG TAB PO SCH (20:14)
[2017-05-21] MEDS: HEPARIN SODIUM - SQ 10,000 UNITS/ML VIAL SQ SCH (21:00)
[2017-05-21] MEDS: SODIUM CHLOR 0.9% 1000 ML INJ 1,000 ML IV SCH (21:00)
[2017-05-21] MEDS: SODIUM CHLORIDE 0.9% FLUSH 10 ML FLUSH IV FLUSH SCH (21:02)
[2017-05-22] VITALS (12 sets, daily range): BP systolic 110–182; BP diastolic 55–93; PULSE 58–114; RESP 16–24; TEMP 97.7–99.3; O2SAT 95–98
[2017-05-22] MEDS: HEPARIN SODIUM - SQ 10,000 UNITS/ML VIAL SQ SCH ×3 (04:21→18:30)
[2017-05-22] MEDS: SODIUM CHLOR 0.9% 1000 ML INJ 1,000 ML IV SCH ×2 (04:22→14:33)
[2017-05-22 07:01] LABS: AUTOMATED NEUTROPHIL # 1.9 TH/MM3 (1.8-7.7); BASOPHIL % 0.7 % (0.0-2.0); EOSINOPHIL % 0.8 % (0.0-4.0); HEMATOCRIT 33.7 % (35.0-46.0); HEMOGLOBIN 11.4 GM/DL (11.6-15.3); LYMPH % 20.2 % (9.0-44.0); LYMPHOCYTE # 0.7 TH/MM3 (1.0-4.8); MEAN CELL VOLUME 99.5 FL (80.0-100.0); MEAN CORPUSCULAR HEMOGLOBIN 33.7 PG (27.0-34.0); MEAN CORPUSCULAR HGB CONC 33.8 % (32.0-36.0); MEAN PLATELET VOLUME 8.8 FL (7.0-11.0); MONO % 21.7 % (0.0-8.0); MONOCYTE # 0.7 TH/MM3 (0-0.9); NEUT % 56.6 % (16.0-70.0); PLATELET COUNT 212 TH/MM3 (150-450); RED BLOOD COUNT 3.38 MIL/MM3 (4.00-5.30); WHITE BLOOD COUNT 3.4 TH/MM3 (4.0-11.0)
[2017-05-22 07:27] LABS: ALBUMIN 3.4 GM/DL (3.4-5.0); AST (GOT) 23 U/L (15-37); BICARBONATE 24.9 MEQ/L (21.0-32.0); BLOOD UREA NITROGEN 18 MG/DL (7-18); CALCIUM 8.7 MG/DL (8.5-10.1); CHLORIDE 112 MEQ/L (98-107); CREATININE 0.87 MG/DL (0.50-1.00); GLOMERULAR FILTRATION RATE 63 ML/MIN (>89); GLUCOSE,RANDOM 112 MG/DL (74-106); SODIUM (NA) 145 MEQ/L (136-145)
[2017-05-22 07:28] LABS: ALT (GPT) 24 U/L (10-53)
[2017-05-22 07:30] LABS: ALKALINE PHOSPHATASE 71 U/L (45-117); TOTAL BILIRUBIN ADULT 0.2 MG/DL (0.2-1.0); TOTAL PROTEIN 6.4 GM/DL (6.4-8.2)
[2017-05-22] MEDS: RESP: ALBUTEROL 2.5 MG/IPRATROPIUM 0.5 MG NEB (SCH) NEB ×4 (07:34→20:15)
--- NOTE | 2017-05-22 08:59 | HHI.PR ---
Subjective Remarks in no acute distress. awake but non-communicative and constantly moaning. afebrile. Objective Vitals Vital Signs Date Time Temp Pulse Resp B/P (MAP) Pulse Ox O2 Delivery O2 Flow Rate FiO2 05/22/17 08:23 97.9 114 20 160/93 (115) 98 05/22/17 07:35 97 Nasal Cannula 2.00 05/22/17 04:33 97.7 58 16 157/70 (99) 97 05/22/17 03:46 62 05/22/17 01:48 131/81 (98) 05/22/17 01:00 98.7 65 24 182/70 (107) 95 05/22/17 00:09 59 05/21/17 21:37 99.3 67 24 129/59 (82) 97 05/21/17 20:08 72 05/21/17 19:23 98 Nasal Cannula 2.00 05/21/17 17:55 98.1 70 24 174/84 (114) 98 05/21/17 17:54 21 05/21/17 14:22 94 21 05/21/17 14:11 64 19 96 Room Air 05/21/17 14:06 96 Room Air 05/21/17 14:06 99.5 05/21/17 13:55 70 18 148/67 (94) 99 I/O 05/21/17 05/21/17 05/21/17 05/22/17 05/22/17 05/22/17 07:00 15:00 23:00 07:00 15:00 23:00 # Voids 4 Result Diagram: 05/22/17 0600 05/22/17 0600 Imaging Last Impressions Head CT 05/21/17 1353 Signed Impressions: Service Date/Time: May 14:35 - CONCLUSION: 1. Mild cerebral and she and periventricular white matter small vessel ischemic changes bilaterally. 2. No acute infarct, acute hemorrhage, mass effect or extra axial fluid collections. Abdoulaye Lopez MD Chest X-Ray 05/21/17 1353 Signed Impressions: Service Date/Time: May 13:56 - CONCLUSION: 1. Minimal streakiness within left lung base consistent with atelectasis fracture or mild infiltrate. 2. 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 Abdoulaye Lopez MD Objective Remarks GENERAL: This is a well-nourished, well-developed patient, in no apparent distress. CARDIOVASCULAR: Regular rate and regular rhythm without murmurs, gallops, or rubs. RESPIRATORY: Clear to auscultation. Breath sounds equal bilaterally. No wheezes , rales, or rhonchi. GASTROINTESTINAL: Abdomen soft, non-tender, nondistended. Normal, active bowel sounds MUSCULOSKELETAL: Extremities without clubbing, cyanosis, or edema. NEURO: awake but non-communicative. Medications and IVs Inpatient Medications Acetaminophen (Tylenol) 650 mg Q4H PRN PO TEMP > 100.4; Start 05/21/17 at 16:00 Albuterol/ Ipratropium (Duoneb Neb) 1 ampule Q4HR WHILE AWAKE NEB NEB Last administered on 05/22/17at 07:34; Start 05/21/17 at 18:00 Amlodipine Besylate (Norvasc) 5 mg DAILY PO ; Start 05/22/17 at 09:00 Azithromycin 500 mg/Sodium Chloride 250 ml @ 250 mls/hr ONCE ONCE IV Last administered on 05/21/17at 16:11; Start 05/21/17 at 16:00; Stop 05/21/17 at 16:59; Status DC Bisacodyl (Dulcolax Supp) 10 mg DAILY PRN RECTAL SEVERE CONSITIPATION; Start at 16:00 Ceftriaxone Sodium 1000 mg/ Sodium Chloride 100 ml @ 200 mls/hr Q24H IV ; Start 05/22/17 at 09:00 Enalaprilat (Vasotec Inj) 1.25 mg Q6H PRN IV PUSH SBP>180, DBP>95; Start at 16:30; Stop 05/21/17 at 17:12; Status DC Heparin Sodium (Porcine) (Heparin Inj) 5,000 units Q8H SQ Last administered on 05/22/17at 04:21; Start 05/21/17 at 18:00 Lactulose (Lactulose Liq) 30 ml DAILY PRN PO SEVERE CONSITIPATION; Start at 16:00 Magnesium Hydroxide (Milk Of Magnesia Liq) 30 ml Q12H PRN PO Mild constipation ; Start 05/21/17 at 16:00 Naloxone HCl (Narcan Inj) 0.4 mg UNSCH PRN IV PUSH SEE LABEL COMMENTS; Start at 16:00 Ondansetron HCl (Zofran Inj) 4 mg Q6H PRN IVP NAUSEA OR VOMITING; Start at 16:00 Patient Own Medication PT OWN MED: COPAX... DAILY SQ ; Start 05/22/17 at 09:00; Status Future Hold Senna/Docusate Sodium (Francheska-Colace) 1 tab BID PO ; Start 05/21/17 at 21:00 Sennosides (Senokot) 17.2 mg Q12H PRN PO Moderate constipation; Start 05/21/17 at 16:00 Sodium Chloride (NS Flush) 2 ml BID IV FLUSH Last administered on 05/21/17at 21: 02; Start 05/21/17 at 21:00 A/P Assessment and Plan A/P AMS/Encephalopathy suspect secondary to medication side effect as patient on multiple sedating medications, dehydration and possible infection CT Head without any acute process, images personally reviewed UC pending hold all sedating medications continue IVF consult ST for swallow evaluation will consult neurology. Follow-up on blood culture results Possible CAP CXR shows minimal streakiness within left lung base consistent with atelectasis fracture or mild infiltrate, images personally reviewed Patient given IV Ceftriaxone and Azithromycin in the ED. Continue with IV ceftriaxone for now. IS at bedside, encourage hourly use continue Mihai monitor respiratory status supplemental oxygen to maintain O2 sats above 92% HAN- improved. Suspect secondary dehydration Avoid nephrotoxic agents continue IV fluids Continue to monitor kidney function HTN adequate control at present resume home antihypertensives once med rec updated monitor BP and adjust treatment as indicated MS Patient on Copaxone at home Follows with Dr. Nuñez of neurology History of Parkinson's per review of medical record No Parkinson's meds on patient's medication list COPD DuoNeb's Resume home MDIs Monitor his status GERD resume home meds once able to tolerate po PT consulted. DVT prophylaxis Heparin sq Discharge Planning not ready for discharge yet. Pawan Acosta MD May 22, 2017 08:59
[2017-05-22] MEDS: DOCUSATE SODIUM 50 MG/SENNA 8.6 MG TAB PO SCH ×2 (09:00→20:23)
[2017-05-22] MEDS: amLODIPine BESYLATE 5 MG TAB PO SCH (09:00)
[2017-05-22] MEDS: SODIUM CHLORIDE 0.9% FLUSH 10 ML FLUSH IV FLUSH SCH ×2 (09:00→20:24)
[2017-05-22] MEDS ORDERED: GLATIRAMER 20 MG SQ SCH (09:00)
[2017-05-22] MEDS ORDERED: COPAXONE 20 MG SQ SCH (09:00)
[2017-05-22] MEDS: cefTRIAXone INJ 1,000 MG in SODIUM CHLORIDE 0.9% INJ 100 ML IV SCH (10:39)
[2017-05-22] MEDS: UMECLIDINIUM 62.5 MCG/VILANTEROL 25 MCG INHALER INH SCH ×2 (11:33→11:35)
--- NOTE | 2017-05-22 20:11 | MB ---
cc: LOVELY HOLLY M.D. DATE OF CONSULTATION 05/22/17 REASON FOR CONSULTATION Mental status change, multiple sclerosis. HISTORY OF PRESENT ILLNESS Ms. Marin is a very nice 76-year old woman well-known to me who has multiple sclerosis. Over the past couple of days she has been having increasing mental status changes with difficulties with combativeness and confusion. She does take pain medications, oxycodone and Baclofen. She had no focal deficits. No new neurologic symptoms. She is much better today. Mental status is much improved. PAST MEDICAL HISTORY 1. History of multiple sclerosis 2. Parkinson's, 3. Hypertension, 4. Lumbar spondylosis 5. Gastroesophageal reflux disease 6. Bilateral hip replacements 7. L5 kyphoplasty 8. Cholecystectomy, 9. ORIF right radial fracture. MEDICATIONS At home, 1. Amlodipine. 2. Ambien. 3. Oxycodone. 4. Baclofen. 5. Copaxone. 6. Ranitidine. 7. Tamsulosin 8. Bupropion 9. Lorazepam 10. Percocet 11. Prolia 12. Elipta. ALLERGIES CODEINE NEUROLOGIC EXAMINATION Blood pressure is 142/60, pulse 68, respiratory rate is 18, temperature 98 degrees. Higher cortical functions - At the present time alert and oriented x3. Speech is fluent. She follows commands. She is not agitated. Cranial nerves are normal. Motor exam 5/5 strength in the upper extremities. She is weak in the lower extremities at 4/5. IMAGING STUDIES CT of the brain - no acute change present. Mild atrophy is identified. LABORATORY DATA The white count is 3400, hemoglobin 11.4, hematocrit 33%, platelet count 212,000. Sodium is 145, potassium 4.1, chloride 112, CO2 24.9, BUN is 18, creatinine 0.87, glucose 112, B12 1567. IMPRESSION Mental status change probably due to medication. RECOMMENDATIONS MRI of the brain to follow up on the MS to rule out MS exacerbation. If MRI is stable, the patient is stable for discharge home from the neurological standpoint. MD VALERIO Guerar/ /6:42 PM /7:31 PM
--- NOTE | 2017-05-22 22:55 | EKG ---
Date Performed: 05/21/2017 Time Performed: 16:15:35 PTAGE: 76 years EKG: Sinus rhythm WITH SINUS ARRHYTHMIA MODERATE ST DEPRESSION ABNORMAL ECG PREVIOUS TRACING : 03/15/2008 11.23 Compared to prior tracing no significant change DOCTOR: Remy Osman Interpretating Date/Time 05/22/2017 22:54:51
[2017-05-23] VITALS (9 sets, daily range): BP systolic 130–153; BP diastolic 58–67; PULSE 68–94; RESP 16–17; TEMP 97.6–98.5; O2SAT 94–100
[2017-05-23] MEDS: SODIUM CHLOR 0.9% 1000 ML INJ 1,000 ML IV SCH ×3 (00:40→17:09)
[2017-05-23] MEDS: HEPARIN SODIUM - SQ 10,000 UNITS/ML VIAL SQ SCH ×3 (02:15→17:09)
[2017-05-23] MEDS: RESP: ALBUTEROL 2.5 MG/IPRATROPIUM 0.5 MG NEB (SCH) NEB ×4 (07:24→19:39)
[2017-05-23] MEDS: DOCUSATE SODIUM 50 MG/SENNA 8.6 MG TAB PO SCH ×2 (07:54→22:59)
[2017-05-23] MEDS: cefTRIAXone INJ 1,000 MG in SODIUM CHLORIDE 0.9% INJ 100 ML IV SCH (07:54)
[2017-05-23] MEDS: SODIUM CHLORIDE 0.9% FLUSH 10 ML FLUSH IV FLUSH SCH ×2 (07:54→22:58)
[2017-05-23] MEDS: amLODIPine BESYLATE 5 MG TAB PO SCH (07:54)
--- NOTE | 2017-05-23 08:07 | HHI.PR ---
Subjective Remarks in no acute distress. mental status has much improved; much more alert today; oriented to person and partly to time and place. afebrile. Objective Vitals Vital Signs Date Time Temp Pulse Resp B/P (MAP) Pulse Ox O2 Delivery O2 Flow Rate FiO2 05/23/17 07:27 97.6 70 16 153/67 (95) 99 05/23/17 07:26 96 Nasal Cannula 2.00 05/23/17 04:45 98.1 68 16 130/58 (82) 97 05/23/17 01:12 Nasal Cannula 2.00 05/22/17 23:21 98.9 71 17 110/55 (73) 97 05/22/17 20:18 99.3 71 16 139/62 (87) 98 05/22/17 20:00 76 05/22/17 16:39 98.2 68 18 142/60 (87) 98 05/22/17 12:39 98.6 60 18 150/60 (90) 96 05/22/17 08:23 97.9 114 20 160/93 (115) 98 I/O 05/22/17 05/22/17 05/22/17 05/23/17 05/23/17 05/23/17 07:00 15:00 23:00 07:00 15:00 23:00 Intake Total 1000 ml Balance 1000 ml Intake IV Total 1000 ml # Voids 4 3 Result Diagram: 05/22/17 0600 05/22/17 0600 Imaging Last Impressions Head CT 05/21/17 1353 Signed Impressions: Service Date/Time: May 14:35 - CONCLUSION: 1. Mild cerebral and she and periventricular white matter small vessel ischemic changes bilaterally. 2. No acute infarct, acute hemorrhage, mass effect or extra axial fluid collections. Abdoulaye Lopez MD Chest X-Ray 05/21/17 1353 Signed Impressions: Service Date/Time: May 13:56 - CONCLUSION: 1. Minimal streakiness within left lung base consistent with atelectasis fracture or mild infiltrate. 2. 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 Abdoulaye Lopez MD Objective Remarks GENERAL: This is a well-nourished, well-developed patient, in no apparent distress. CARDIOVASCULAR: Regular rate and regular rhythm without murmurs, gallops, or rubs. RESPIRATORY: Clear to auscultation. Breath sounds equal bilaterally. No wheezes , rales, or rhonchi. GASTROINTESTINAL: Abdomen soft, non-tender, nondistended. Normal, active bowel sounds MUSCULOSKELETAL: Extremities without clubbing, cyanosis, or edema. NEURO: awake but non-communicative. Medications and IVs Inpatient Medications Acetaminophen (Tylenol) 650 mg Q4H PRN PO TEMP > 100.4 Last administered on 05/22 19:48; Start 05/21/17 at 16:00 Albuterol/ Ipratropium (Duoneb Neb) 1 ampule Q4HR WHILE AWAKE NEB NEB Last administered on 05/23/17 07:24; Start 05/21/17 at 18:00 Amlodipine Besylate (Norvasc) 5 mg DAILY PO Last administered on 05/23/17 07:54 ; Start 05/22/17 at 09:00 Azithromycin 500 mg/Sodium Chloride 250 ml @ 250 mls/hr ONCE ONCE IV Last administered on 05/21/17at 16:11; Start 05/21/17 at 16:00; Stop 05/21/17 at 16:59; Status DC Bisacodyl (Dulcolax Supp) 10 mg DAILY PRN RECTAL SEVERE CONSITIPATION; Start at 16:00 Ceftriaxone Sodium 1000 mg/ Sodium Chloride 100 ml @ 200 mls/hr Q24H IV Last administered on 05/23/17 07:54; Start 05/22/17 at 09:00 Enalaprilat (Vasotec Inj) 1.25 mg Q6H PRN IV PUSH SBP>180, DBP>95; Start at 16:30; Stop 05/21/17 at 17:12; Status DC Heparin Sodium (Porcine) (Heparin Inj) 5,000 units Q8H SQ Last administered on 05/23/17at 02:15; Start 05/21/17 at 18:00 Lactulose (Lactulose Liq) 30 ml DAILY PRN PO SEVERE CONSITIPATION; Start at 16:00 Magnesium Hydroxide (Milk Of Magnesia Liq) 30 ml Q12H PRN PO Mild constipation ; Start 05/21/17 at 16:00 Naloxone HCl (Narcan Inj) 0.4 mg UNSCH PRN IV PUSH SEE LABEL COMMENTS; Start at 16:00 Ondansetron HCl (Zofran Inj) 4 mg Q6H PRN IVP NAUSEA OR VOMITING; Start at 16:00 Patient Own Medication PT OWN MED: COPAX... DAILY SQ ; Start 05/22/17 at 09:00; Status Future Hold Senna/Docusate Sodium (Francheska-Colace) 1 tab BID PO Last administered on 05/23/17at 07:54; Start 05/21/17 at 21:00 Sennosides (Senokot) 17.2 mg Q12H PRN PO Moderate constipation; Start 05/21/17 at 16:00 Sodium Chloride (NS Flush) 2 ml BID IV FLUSH Last administered on 05/23/17at 07: 54; Start 05/21/17 at 21:00 A/P Assessment and Plan A/P AMS/Encephalopathy- has much improved. suspect secondary to medication side effect as patient on multiple sedating medications, dehydration and possible infection CT Head without any acute process, images personally reviewed neurology consult appreciated; MRI brain pending. UC with enterococcus hold all sedating medications continue IVF ST consult appreciated and recommended puree diet. Possible CAP CXR shows minimal streakiness within left lung base consistent with atelectasis fracture or mild infiltrate, images personally reviewed Patient given IV Ceftriaxone and Azithromycin in the ED. Continue with IV ceftriaxone for now; will switch to po abx upon discharge. IS at bedside, encourage hourly use continue Duonebs monitor respiratory status supplemental oxygen to maintain O2 sats above 92% HAN- improved. Suspect secondary dehydration Avoid nephrotoxic agents continue IV fluids Continue to monitor kidney function HTN adequate control at present resume home antihypertensives once med rec updated monitor BP and adjust treatment as indicated MS Patient on Copaxone at home MRI conner today. Follows with Dr. Nuñez of neurology History of Parkinson's per review of medical record No Parkinson's meds on patient's medication list COPD DuoNeb's Resume home MDIs Monitor his status GERD resume home meds once able to tolerate po PT consult appreciated. DVT prophylaxis Heparin sq Discharge Planning dc to rehab if MRI brain negative- Pawan Acosta MD May 23, 2017 08:07
[2017-05-23] MEDS ORDERED: GADODIAMIDE PF 287 MG/ML 5 ML VIAL (for RAD MRI) IVCONTRAST ONE (11:18)
--- NOTE | 2017-05-23 11:52 | RADRPT ---
EXAM DATE/TIME: 05/23/2017 11:05 [facility] COMPARISON: CT BRAIN W/O CONTRAST, May 21, 2017, 14:35. INDICATIONS : Altered mental status. CONTRAST: 13 cc Omniscan (gadodiamide) IV MEDICAL HISTORY : Multiple sclerosis. Hypertension. SURGICAL HISTORY : Cholecystectomy. Bilateral hips ENCOUNTER: Initial ACUITY: 1 day PAIN SCORE: 0/10 LOCATION: cranial TECHNIQUE: Multiplanar, multisequence MRI of the brain was performed both prior to and following the administrat ion of paramagnetic contrast. FINDINGS: CEREBRUM: Cerebral atrophy is noted. Old infarct is noted within the left posterior parietal region medially. N o evidence of midline shift, mass lesion, hemorrhage or acute infarction. No extraaxial fluid collec tions are seen. The pituitary gland and suprasellar cistern are normal in configuration. WHITE MATTER: Mild periventricular white matter small vessel ischemic changes are noted bilaterally. POSTERIOR FOSSA: The cerebellum and brainstem are intact. The 4th ventricle is midline. The cerebellopontine angle is unremarkable. The cerebellar tonsils are normal in position. DIFFUSION IMAGING: No focal areas of restricted diffusion are seen. No evidence of acute infarction. EXTRACRANIAL: The visualized portions of the orbits and paranasal sinuses are unremarkable. POST-CONTRAST: No abnormal areas of parenchymal or dural enhancement. No evidence of blood-brain barrier breakdown. CONCLUSION: 1. Cerebral atrophy. 2. Mild periventricular white matter small vessel ischemic changes bilaterally. 3. 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 4. No acute infarct, acute hemorrhage, midline shift or extra-axial fluid collections. 5. No abnormal enhancing mass lesion. Abdoulaye Lopez MD on May 23, 2017 at 11:45 Board Certified Radiologist. This report was verified electronically.
[2017-05-23] MEDS ORDERED: NORC5TAB PO (14:10)
[2017-05-23] MEDS ORDERED: AMLO5 PO (14:16)
[2017-05-23] MEDS ORDERED: AMOX875T2 PO (14:16)
--- NOTE | 2017-05-23 14:21 | HHI.PR ---
Review/Management Diagnosis Mental status change--most likely medication effect. MS is stable Plan ok from neurology standpoint to discharge home. Please have her follow up with me in office next week. Diagnosis/Plan: Subjective Subjective Comments No acute events reported More alert today and less confused. patient feels at baseline Active Medications Current Medications Medications (Trade) Dose Ordered Sig/Taurus Route Start Time Stop Time Status Last Admin (NS Flush) 2 ml UNSCH PRN IV FLUSH 05/21/17 14:00 Sodium Chloride 1,000 ml @ 100 mls/hr Q10H IV 05/21/17 16:30 05/23/17 07:55 (NS Flush) 2 ml BID IV FLUSH 05/21/17 21:00 05/23/17 07:54 (Tylenol) 650 mg Q4H PRN PO 05/21/17 16:00 05/22/17 19:48 (Zofran Inj) 4 mg Q6H PRN IVP 05/21/17 16:00 (Heparin Inj) 5,000 units Q8H SQ 05/21/17 18:00 05/23/17 10:00 (Narcan Inj) 0.4 mg UNSCH PRN IV PUSH 05/21/17 16:00 (Francheska-Colace) 1 tab BID PO 05/21/17 21:00 05/23/17 07:54 (Milk Of Magnesia Liq) 30 ml Q12H PRN PO 05/21/17 16:00 (Senokot) 17.2 mg Q12H PRN PO 05/21/17 16:00 (Dulcolax Supp) 10 mg DAILY PRN RECTAL 05/21/17 16:00 (Lactulose Liq) 30 ml DAILY PRN PO 05/21/17 16:00 (Norvasc) 5 mg DAILY PO 05/22/17 09:00 05/23/17 07:54 (Duoneb Neb) 1 ampule Q4HR WHILE AWAKE NEB NEB 05/21/17 18:00 05/23/17 12:03 Patient Own Medication PT OWN MED: COPAX... DAILY SQ 05/22/17 09:00 Future Hold (Wellbutrin) 75 mg BID PO 05/23/17 21:00 (Aricept) 10 mg HS PO 05/23/17 21:00 (Vitamin B12) 1,000 mcg DAILY PO 05/24/17 09:00 (Pepcid) 20 mg BID PO 05/24/17 09:00 (Augmentin) 875 mg Q12HR PO 05/23/17 21:00 05/30/17 20:59 Allergies Allergies Coded Allergies codeine (Unverified Allergy, Severe, Hallucinations, 12/30/16) Exam I&O / VS 05/23/17 05/23/17 05/24/17 15:00 23:00 07:00 Intake Total 1150 ml Balance 1150 ml Intake IV Total 1150 ml Vital Signs Date Time Temp Pulse Resp B/P (MAP) Pulse Ox O2 Delivery O2 Flow Rate FiO2 05/23/17 11:51 98.4 81 16 140/65 (90) 94 05/23/17 07:27 97.6 70 16 153/67 (95) 99 05/23/17 07:26 96 Nasal Cannula 2.00 05/23/17 04:45 98.1 68 16 130/58 (82) 97 05/23/17 01:12 Nasal Cannula 2.00 05/22/17 23:21 98.9 71 17 110/55 (73) 97 05/22/17 20:18 99.3 71 16 139/62 (87) 98 05/22/17 20:00 76 05/22/17 16:39 98.2 68 18 142/60 (87) 98 Exam Comments alert, oriented, speech normal CN intact MOTOR 4/5 BUE, 4-/5 BLE Objective Radiology Results MRI brain--stable ,no acute change. No evidence of active MS plaque Micro and Labs Date/Time Source Procedure Growth Status 05/21/17 14:30 Blood Peripheral Aerobic Blood Culture - Preliminary NO GROWTH IN 2 DAYS Resulted 05/21/17 14:30 Blood Peripheral Anaerobic Blood Culture - Preliminary NO GROWTH IN 2 DAYS Resulted 05/21/17 16:04 Urine Catheterized Urine Urine Culture - Final Enterococcus Faecalis Complete Isaac Nuñez MD PhD May 23, 2017 14:21
[2017-05-23] MEDS: AMOXICILLIN/CLAVULANATE K 875 MG TAB PO SCH (22:59)
[2017-05-23] MEDS: buPROPion HCL 75 MG TAB PO SCH (22:59)
[2017-05-23] MEDS: DONEPEZIL HCL 5 MG TAB PO SCH (22:59)
[2017-05-24] VITALS (10 sets, daily range): BP systolic 133–162; BP diastolic 60–70; PULSE 68–83; RESP 16–20; TEMP 97.8–98.2; O2SAT 1–99
[2017-05-24] MEDS: HEPARIN SODIUM - SQ 10,000 UNITS/ML VIAL SQ SCH ×3 (03:14→17:37)
[2017-05-24] MEDS: SODIUM CHLOR 0.9% 1000 ML INJ 1,000 ML IV SCH ×3 (03:15→22:19)
[2017-05-24] MEDS: RESP: ALBUTEROL 2.5 MG/IPRATROPIUM 0.5 MG NEB (SCH) NEB (07:46)
[2017-05-24] MEDS: UMECLIDINIUM 62.5 MCG/VILANTEROL 25 MCG INHALER INH SCH (07:49)
[2017-05-24] MEDS: AMOXICILLIN/CLAVULANATE K 875 MG TAB PO SCH ×2 (07:49→22:19)
[2017-05-24] MEDS: amLODIPine BESYLATE 5 MG TAB PO SCH (07:49)
[2017-05-24] MEDS: CYANOCOBALAMIN 1,000 MCG TAB PO SCH (07:49)
[2017-05-24] MEDS: SODIUM CHLORIDE 0.9% FLUSH 10 ML FLUSH IV FLUSH SCH ×2 (07:50→22:19)
[2017-05-24] MEDS: buPROPion HCL 75 MG TAB PO SCH ×2 (07:50→22:20)
--- NOTE | 2017-05-24 08:17 | HHI.PR ---
Subjective Remarks in no acute distress. awake and alert. says that had a good sleep last night. d/w the RN and no acute issues over night. Objective Vitals Vital Signs Date Time Temp Pulse Resp B/P (MAP) Pulse Ox O2 Delivery O2 Flow Rate FiO2 05/24/17 07:50 1 Nasal Cannula 2.00 05/24/17 03:57 97.9 71 16 133/61 (85) 99 05/24/17 03:53 71 05/24/17 00:21 72 05/23/17 23:14 98.5 78 16 143/64 (90) 100 05/23/17 20:34 98.5 94 17 135/64 (87) 95 05/23/17 20:04 90 05/23/17 19:40 96 05/23/17 15:43 98.2 94 17 134/60 (84) 96 05/23/17 11:51 98.4 81 16 140/65 (90) 94 I/O 05/23/17 05/23/17 05/23/17 05/24/17 05/24/17 05/24/17 07:00 15:00 23:00 07:00 15:00 23:00 Intake Total 1000 ml 1150 ml 2750 ml 1050 ml Balance 1000 ml 1150 ml 2750 ml 1050 ml Intake Oral 750 ml 400 ml IV Total 1000 ml 1150 ml 2000 ml 650 ml # Voids 3 Result Diagram: 05/22/17 0600 05/22/17 0600 Imaging Last Impressions Brain MRI 05/23/17 0000 Signed Impressions: Service Date/Time: Tuesday, May 23, 2017 11:05 - CONCLUSION: 1. Cerebral atrophy. 2. Mild periventricular white matter small vessel ischemic changes bilaterally. 3. 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 4. No acute infarct, acute hemorrhage, midline shift or extra-axial fluid collections. 5. No abnormal enhancing mass lesion. Abdoulaye Lopez MD Head CT 05/21/17 [id number] Signed Impressions: Service Date/Time: May 14:35 - CONCLUSION: 1. Mild cerebral atrophy and periventricular white matter small vessel ischemic changes bilaterally. 2. No acute infarct, acute hemorrhage, mass effect or extra axial fluid collections. Abdoulaye Lopez MD Chest X-Ray 05/21/17 6417 Signed Impressions: Service Date/Time: May 13:56 - CONCLUSION: 1. Minimal streakiness within left lung base consistent with atelectasis fracture or mild infiltrate. 2. 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 Abdoulaye Lopez MD Objective Remarks GENERAL: This is a well-nourished, well-developed patient, in no apparent distress. CARDIOVASCULAR: Regular rate and regular rhythm without murmurs, gallops, or rubs. RESPIRATORY: Clear to auscultation. Breath sounds equal bilaterally. No wheezes , rales, or rhonchi. GASTROINTESTINAL: Abdomen soft, non-tender, nondistended. Normal, active bowel sounds MUSCULOSKELETAL: Extremities without clubbing, cyanosis, or edema. NEURO: awake but non-communicative. Medications and IVs Inpatient Medications Acetaminophen (Tylenol) 650 mg Q4H PRN PO TEMP > 100.4 Last administered on 05/22at 19:48; Start 05/21/17 at 16:00 Albuterol/ Ipratropium (Duoneb Neb) 1 ampule Q4HR WHILE AWAKE NEB NEB Last administered on 05/24/17at 07:46; Start 05/21/17 at 18:00 Amlodipine Besylate (Norvasc) 5 mg DAILY PO Last administered on 05/24/17at 07:49 ; Start 05/22/17 at 09:00 Amoxicillin/ Clavulanate Potassium (Augmentin) 875 mg Q12HR PO Last administered on 05/24/17at 07:49; Start 05/23/17 at 21:00; Stop 05/30/17 at 20:59 Azithromycin 500 mg/Sodium Chloride 250 ml @ 250 mls/hr ONCE ONCE IV Last administered on 05/21/17at 16:11; Start 05/21/17 at 16:00; Stop 05/21/17 at 16:59; Status DC Bisacodyl (Dulcolax Supp) 10 mg DAILY PRN RECTAL SEVERE CONSITIPATION; Start at 16:00 Bupropion HCl (Wellbutrin) 75 mg BID PO Last administered on 05/24/17at 07:50; Start 05/23/17 at 21:00 Ceftriaxone Sodium 1000 mg/ Sodium Chloride 100 ml @ 200 mls/hr Q24H IV Last administered on 05/23/17at 07:54; Start 05/22/17 at 09:00; Stop 05/23/17 at 14:03; Status DC Cyanocobalamin (Vitamin B12) 1,000 mcg DAILY PO Last administered on 05/24/17at 07:49; Start 05/24/17 at 09:00 Donepezil HCl (Aricept) 10 mg HS PO Last administered on 05/23/17at 22:59; Start 05/23/17 at 21:00 Enalaprilat (Vasotec Inj) 1.25 mg Q6H PRN IV PUSH SBP>180, DBP>95; Start at 16:30; Stop 05/21/17 at 17:12; Status DC Famotidine (Pepcid) 20 mg BID PO Last administered on 05/24/17at 07:49; Start 05/24/17 at 09:00 Heparin Sodium (Porcine) (Heparin Inj) 5,000 units Q8H SQ Last administered on 05/24/17at 03:14; Start 05/21/17 at 18:00 Lactulose (Lactulose Liq) 30 ml DAILY PRN PO SEVERE CONSITIPATION; Start at 16:00 Magnesium Hydroxide (Milk Of Magnesia Liq) 30 ml Q12H PRN PO Mild constipation ; Start 05/21/17 at 16:00 Naloxone HCl (Narcan Inj) 0.4 mg UNSCH PRN IV PUSH SEE LABEL COMMENTS; Start at 16:00 Ondansetron HCl (Zofran Inj) 4 mg Q6H PRN IVP NAUSEA OR VOMITING; Start at 16:00 Patient Own Medication PT OWN MED: COPAX... DAILY SQ ; Start 05/22/17 at 09:00; Status Future Hold Senna/Docusate Sodium (Francheska-Colace) 1 tab BID PO Last administered on 05/23/17at 22:59; Start 05/21/17 at 21:00 Sennosides (Senokot) 17.2 mg Q12H PRN PO Moderate constipation; Start 05/21/17 at 16:00 Sodium Chloride (NS Flush) 2 ml BID IV FLUSH Last administered on 05/24/17at 07: 50; Start 05/21/17 at 21:00 A/P Assessment and Plan A/P AMS/Encephalopathy- has much improved. suspect secondary to medication side effect as patient on multiple sedating medications, dehydration and possible infection CT Head without any acute process, images personally reviewed neurology consult appreciated; MRI brain with no acute infarct or hemorrhage. UC with enterococcus ST consult appreciated and recommended puree diet. Possible CAP CXR shows minimal streakiness within left lung base consistent with atelectasis fracture or mild infiltrate, images personally reviewed Patient given IV Ceftriaxone and Azithromycin in the ED. will continue with Augmentin. continue neb treatment as needed. monitor respiratory status supplemental oxygen to maintain O2 sats above 92% HAN- improved. Suspect secondary dehydration Avoid nephrotoxic agents continue IV fluids Continue to monitor kidney function HTN adequate control at present continue amlodipine monitor BP and adjust treatment as indicated MS Patient on Copaxone at home Follows with Dr. Nuñez of neurology History of Parkinson's per review of medical record No Parkinson's meds on patient's medication list COPD DuoNeb's Resume home MDIs Monitor his status GERD resume home meds once able to tolerate po PT consult appreciated. DVT prophylaxis Heparin sq Discharge Planning dc to rehab when arrangements made. Pawan Acosta MD May 24, 2017 08:17
[2017-05-24] MEDS ORDERED: RESP: ALBUTEROL 2.5 MG/IPRATROPIUM 0.5 MG NEB (PRN) NEB (08:30)
[2017-05-24] MEDS ORDERED: FAMOTIDINE 20 MG TAB PO SCH (09:00)
[2017-05-24] MEDS: DOCUSATE SODIUM 50 MG/SENNA 8.6 MG TAB PO SCH ×2 (11:20→22:22)
[2017-05-24] MEDS: DONEPEZIL HCL 5 MG TAB PO SCH (22:19)
[2017-05-24] MEDS: FAMOTIDINE 20 MG TAB PO SCH (22:20)
[2017-05-25] VITALS (7 sets, daily range): BP systolic 150–176; BP diastolic 67–74; PULSE 62–82; RESP 18–22; TEMP 97.6–98.9; O2SAT 97–100
[2017-05-25] MEDS: HEPARIN SODIUM - SQ 10,000 UNITS/ML VIAL SQ SCH ×2 (03:04→12:24)
--- NOTE | 2017-05-25 07:53 | HHI.PR ---
Subjective Remarks resting comfortably with no distress. no new complaints. awaiting discharge to rehab. Objective Vitals Vital Signs Date Time Temp Pulse Resp B/P (MAP) Pulse Ox O2 Delivery O2 Flow Rate FiO2 05/25/17 07:32 97.8 62 18 155/72 (99) 100 05/25/17 05:37 97.6 62 22 153/68 (96) 100 05/25/17 00:00 98.1 62 20 150/67 (94) 99 05/24/17 21:21 93 Nasal Cannula 2.00 05/24/17 16:21 97.9 68 20 148/60 (89) 96 05/24/17 13:00 98.2 78 20 162/68 (99) 96 05/24/17 08:27 97.8 77 20 160/70 (100) 98 05/24/17 08:00 83 05/24/17 07:50 1 Nasal Cannula 2.00 I/O 05/24/17 05/24/17 05/24/17 05/25/17 05/25/17 05/25/17 07:00 15:00 23:00 07:00 15:00 23:00 Intake Total 1050 ml Balance 1050 ml Intake Oral 400 ml IV Total 650 ml # Voids 3 2 # Bowel Movements 0 Result Diagram: 05/22/17 0600 05/22/17 0600 Imaging Last Impressions Brain MRI 05/23/17 0000 Signed Impressions: Service Date/Time: Tuesday, May 23, 2017 11:05 - CONCLUSION: 1. Cerebral atrophy. 2. Mild periventricular white matter small vessel ischemic changes bilaterally. 3. 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 4. No acute infarct, acute hemorrhage, midline shift or extra-axial fluid collections. 5. No abnormal enhancing mass lesion. Abdoulaye Lopez MD Head CT 05/21/17 1913 Signed Impressions: Service Date/Time: May 14:35 - CONCLUSION: 1. Mild cerebral atrophy and periventricular white matter small vessel ischemic changes bilaterally. 2. No acute infarct, acute hemorrhage, mass effect or extra axial fluid collections. Abdoulaye Lopez MD Chest X-Ray 05/21/17 [id number] Signed Impressions: Service Date/Time: May 13:56 - CONCLUSION: 1. Minimal streakiness within left lung base consistent with atelectasis fracture or mild infiltrate. 2. 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 Abdoulaye Lopez MD Objective Remarks GENERAL: This is a well-nourished, well-developed patient, in no apparent distress. CARDIOVASCULAR: Regular rate and regular rhythm without murmurs, gallops, or rubs. RESPIRATORY: Clear to auscultation. Breath sounds equal bilaterally. No wheezes , rales, or rhonchi. GASTROINTESTINAL: Abdomen soft, non-tender, nondistended. Normal, active bowel sounds MUSCULOSKELETAL: Extremities without clubbing, cyanosis, or edema. NEURO: awake but non-communicative. Medications and IVs Inpatient Medications Acetaminophen (Tylenol) 650 mg Q4H PRN PO TEMP > 100.4 Last administered on 05/22 19:48; Start 05/21/17 at 16:00 Albuterol/ Ipratropium (Duoneb Neb) 1 ampule Q4HR NEB PRN NEB SHORTNESS OF BREATH Last administered on 05/24/17at 11:55; Start 05/24/17 at 08:30 Amlodipine Besylate (Norvasc) 5 mg DAILY PO Last administered on 05/24/17 07:49 ; Start 05/22/17 at 09:00 Amoxicillin/ Clavulanate Potassium (Augmentin) 875 mg Q12HR PO Last administered on 05/24/17 22:19; Start 05/23/17 at 21:00; Stop 05/30/17 at 20:59 Azithromycin 500 mg/Sodium Chloride 250 ml @ 250 mls/hr ONCE ONCE IV Last administered on 05/21/17at 16:11; Start 05/21/17 at 16:00; Stop 05/21/17 at 16:59; Status DC Bisacodyl (Dulcolax Supp) 10 mg DAILY PRN RECTAL SEVERE CONSITIPATION; Start at 16:00 Bupropion HCl (Wellbutrin) 75 mg BID PO Last administered on 05/24/17at 22:20; Start 05/23/17 at 21:00 Ceftriaxone Sodium 1000 mg/ Sodium Chloride 100 ml @ 200 mls/hr Q24H IV Last administered on 05/23/17at 07:54; Start 05/22/17 at 09:00; Stop 05/23/17 at 14:03; Status DC Cyanocobalamin (Vitamin B12) 1,000 mcg DAILY PO Last administered on 05/24/17at 07:49; Start 05/24/17 at 09:00 Donepezil HCl (Aricept) 10 mg HS PO Last administered on 05/24/17at 22:19; Start 05/23/17 at 21:00 Enalaprilat (Vasotec Inj) 1.25 mg Q6H PRN IV PUSH SBP>180, DBP>95; Start at 16:30; Stop 05/21/17 at 17:12; Status DC Famotidine (Pepcid) 10 mg BID PO Last administered on 05/24/17at 22:20; Start 05/24/17 at 21:00 Heparin Sodium (Porcine) (Heparin Inj) 5,000 units Q8H SQ Last administered on 05/25/17at 03:04; Start 05/21/17 at 18:00 Lactulose (Lactulose Liq) 30 ml DAILY PRN PO SEVERE CONSITIPATION; Start at 16:00 Magnesium Hydroxide (Milk Of Magnesia Liq) 30 ml Q12H PRN PO Mild constipation ; Start 05/21/17 at 16:00 Naloxone HCl (Narcan Inj) 0.4 mg UNSCH PRN IV PUSH SEE LABEL COMMENTS; Start at 16:00 Ondansetron HCl (Zofran Inj) 4 mg Q6H PRN IVP NAUSEA OR VOMITING; Start at 16:00 Patient Own Medication PT OWN MED: COPAX... DAILY SQ ; Start 05/22/17 at 09:00; Status Future Hold Senna/Docusate Sodium (Francheska-Colace) 1 tab BID PO Last administered on 05/24/17at 22:22; Start 05/21/17 at 21:00 Sennosides (Senokot) 17.2 mg Q12H PRN PO Moderate constipation; Start 05/21/17 at 16:00 Sodium Chloride (NS Flush) 2 ml BID IV FLUSH Last administered on 05/24/17at 22: 19; Start 05/21/17 at 21:00 A/P Assessment and Plan A/P AMS/Encephalopathy- has much improved. suspect secondary to medication side effect as patient on multiple sedating medications, dehydration and possible infection CT Head without any acute process. neurology consult appreciated; MRI brain with no acute infarct or hemorrhage. UC with enterococcus ST consult appreciated and recommended puree diet. Possible CAP CXR shows minimal streakiness within left lung base consistent with atelectasis fracture or mild infiltrate, images personally reviewed Patient given IV Ceftriaxone and Azithromycin in the ED. will continue with Augmentin. continue neb treatment as needed. monitor respiratory status supplemental oxygen to maintain O2 sats above 92% HAN- improved. Suspect secondary dehydration Avoid nephrotoxic agents continue IV fluids Continue to monitor kidney function HTN adequate control at present continue amlodipine monitor BP and adjust treatment as indicated MS Patient on Copaxone at home Follows with Dr. Nuñez of neurology History of Parkinson's per review of medical record No Parkinson's meds on patient's medication list COPD DuoNeb's Resume home MDIs Monitor his status GERD resume home meds once able to tolerate po PT consult appreciated. DVT prophylaxis Heparin sq Discharge Planning dc to rehab when arrangements made. Pawan Acosta MD May 25, 2017 07:53
[2017-05-25] MEDS: SODIUM CHLORIDE 0.9% FLUSH 10 ML FLUSH IV FLUSH SCH (09:00)
[2017-05-25] MEDS: amLODIPine BESYLATE 5 MG TAB PO SCH (11:03)
[2017-05-25] MEDS: FAMOTIDINE 20 MG TAB PO SCH (11:03)
[2017-05-25] MEDS: DOCUSATE SODIUM 50 MG/SENNA 8.6 MG TAB PO SCH (11:03)
[2017-05-25] MEDS: CYANOCOBALAMIN 1,000 MCG TAB PO SCH (11:03)
[2017-05-25] MEDS: UMECLIDINIUM 62.5 MCG/VILANTEROL 25 MCG INHALER INH SCH (11:10)
[2017-05-25] MEDS: AMOXICILLIN/CLAVULANATE K 875 MG TAB PO SCH (12:23)
[2017-05-25] MEDS: buPROPion HCL 75 MG TAB PO SCH (12:24)
== END 2017-05-25 15:49 | DRG 91 ==
LOC: NEPE 13:40 → NEDA 15:48 → NEPFCDU 17:52
PROVIDERS: ADMIT Internal Medicine; ATTEND Internal Medicine
DX: G92 Toxic encephalopathy (principal); J18.9 Pneumonia, unspecified organism; N17.9 Acute kidney failure, unspecified; G20 Parkinson's disease; F02.80 Dementia in other diseases classified elsewhere, unspecified severity, without behavioral disturbance, psychotic disturbance, mood disturbance, and anxiety; E86.0 Dehydration; J44.0 Chronic obstructive pulmonary disease with (acute) lower respiratory infection; J98.11 Atelectasis; T42.6X5A Adverse effect of other antiepileptic and sedative-hypnotic drugs, initial encounter; G35 Multiple sclerosis; K21.9 Gastro-esophageal reflux disease without esophagitis; I10 Essential (primary) hypertension; M51.36 Other intervertebral disc degeneration, lumbar region; M47.816 Spondylosis without myelopathy or radiculopathy, lumbar region; F41.9 Anxiety disorder, unspecified; Z88.5 Allergy status to narcotic agent; Z96.643 Presence of artificial hip joint, bilateral
CPT/HCPCS: 70450; 70553; 71045; 80053; 80307; 81001; 82140; 82550; 82607; 82746; 82948; 83605; 83735; 84100; 84443; 84484; 85025; 85610; 85730; 86592; 87040; 87077; 87086; 87186; 93005; 94640; 94664; 96374; A9579; J0456; J0696; J1644; J2310; J7030; J7050

== ENCOUNTER 2017-06-21 09:23 | Emergency (ER) | payer OTHER ==
[~2017-06-21] VITALS: Ht 152.4 cm; Wt 51.0 kg
[~2017-06-21 09:23] MED LIST changes: -AMBI10TA PO; +AMLO5 PO; -AMLO5TAB2 PO; +AMOX875T2 PO; -BACL10TA PO; +BUPR75TA PO; +CALC1TAB12 PO; -COPAXONE SQ; +CYAN100025 SL; +DONE10TA7 PO; +IPRASOL INH; +LACT10SO PO; +NORC5TAB PO; +ONDA4TAB15; -OXYC1CAP PO; +RANI150T PO; +TAMS0.4C4 PO; +TYLE325T PO; +UMEC1AER INH
[2017-06-21 09:25] VITALS: BP 169/73; PULSE 71; RESP 18; TEMP 98.6; O2SAT 97
[2017-06-21] MEDS ORDERED: SODIUM CHLORIDE 0.9% FLUSH 10 ML FLUSH IVF PRN (09:45)
--- NOTE | 2017-06-21 10:10 | PD ---
HPI Chief Complaint: Complaint Time Seen by Provider: 09:36 Travel History International Travel<30 days: No Contact w/Intl Traveler<30days: No Traveled to known affect area: No History of Present Illness HPI 76-year-old female with history of MS, reportedly recently treated for UTI by her PCP last week. Patient's reports that she has seen a urologist in the past, and was taking a medication for her urinary retention, which he stopped about a week ago as she felt it made her "pee all the time". Patient has had 3 days of decreased urine output, and signs of retention with frequent small amounts past. No fever, chills, rash, or flank pain. Patient does have cramping in the lower abdomen region. She has no other abdominal symptoms. She is allergic to codeine. The patient's neurologist is Dr. Nuñez, her urologist is Dr. Méndez. [facility] Past Medical History Arthritis: No Asthma: No Autoimmune Disease: No Blood Disorders: No Anxiety: Yes Depression: No Heart Rhythm Problems: No Cancer: No Cardiovascular Problems: No High Cholesterol: No Chemotherapy: No Chest Pain: No Congestive Heart Failure: No COPD: Yes Cerebrovascular Accident: No Diabetes: No Diminished Hearing: No Endocrine: No Gastrointestinal Disorders: Yes GERD: Yes Glaucoma: No Genitourinary: No Headaches: No Hepatitis: No Hiatal Hernia: No Hypertension: Yes Immune Disorder: No Kidney Stones: No Musculoskeletal: Yes (MS) Neurologic: Yes Psychiatric: No Reproductive: No Respiratory: No Migraines: No Myocardial Infarction: No Radiation Therapy: No Renal Failure: No Seizures: No Sickle Cell Disease: No Sleep Apnea: No Thyroid Disease: No Ulcer: Yes Menopausal: Yes Past Surgical History Abdominal Surgery: Yes (ruptured bowel) AICD: No Appendectomy: No Cardiac Surgery: No Cholecystectomy: Yes Ear Surgery: No Endocrine Surgery: No Eye Surgery: No Genitourinary Surgery: No Gynecologic Surgery: No Joint Replacement: Yes (HIP) Neurologic Surgery: No Oral Surgery: No Pacemaker: No Thoracic Surgery: No Other Surgery: Yes Social History Alcohol Use: No Tobacco Use: No Substance Use: No Allergies-Medications (Allergen,Severity, Reaction): Coded Allergies: codeine (Unverified Allergy, Severe, Hallucinations, 06/21/17) Reported Meds & Prescriptions Reported Meds & Active Scripts Active Reported Senna-Tabs (Sennosides) 8.6 Mg Tab 8.6 Mg PO DAILY Prolia Inj (Denosumab) 60 Mg/Ml Inj 60 Mg SQ Q180D Oxycodone-Acetaminophen 10-325 (Oxycodone HCl/Acetaminophen) 10 Mg-325 Mg Tablet Ocrevus (Ocrelizumab) 300 Mg/10 Ml Vial Mirtazapine 7.5 Mg Tab 7.5 Mg PO HS Lorazepam 0.5 Mg Tab 0.5 Mg PO DAILY PRN Escitalopram (Escitalopram Oxalate) 20 Mg Tab 20 Mg PO DAILY Duloxetine DR (Duloxetine HCl) 60 Mg Capdr 60 Mg PO DAILY Carbidopa-Levo 25-100 mg Odt (Carbidopa/Levodopa) 25 Mg-100 Mg Tab.rapdis Baclofen 20 Mg Tab 20 Mg PO QID Aspirin 81 Mg Chew 81 Mg CHEW DAILY Tylenol (Acetaminophen) 325 Mg Tab 325 Mg PO Q6H Tamsulosin (Tamsulosin HCl) 0.4 Mg Cap 0.4 Mg PO HS Ranitidine (Ranitidine HCl) 150 Mg Tab 150 Mg PO DAILY Ondansetron (Ondansetron HCl) 4 Mg Tab Q8HR Duoneb (Ipratropium-Albuterol Neb) 0.5-2.5 Mg/3 Ml Neb 1 Nebule INH Q6HR NEB B-12 (Cyanocobalamin) 1,000 Mcg Subl 1,000 Mcg SL DAILY Calcium 500 +D (Calcium Carbonate-Cholecalciferol) 500-400 Mg-Unit Tab 1 Tab PO DAILY Bupropion HCl 75 Mg Tab 75 Mg PO BID Anoro Ellipta Inh (Umeclidinium/Vilanterol) 62.5-25 Mcg/Act Aero 1 Puff INH DAILY Review of Systems Except as stated in HPI: all other systems reviewed are Neg General / Constitutional: No: Fever, Chills Eyes: No: Visual changes HENT: No: Headaches Cardiovascular: No: Chest Pain or Discomfort Respiratory: No: Shortness of Breath Gastrointestinal: No: Abdominal Pain Genitourinary: Positive: Urgency, Frequency, Dysuria, Dribbling, Incontinence, No: Nocturia, Hematuria, Decreased Urinary Output, Hesitancy, Pelvic Pain, Flank Pain Musculoskeletal: No: Pain Skin: No Rash Neurologic: No: Weakness Psychiatric: No: Depression Endocrine: No: Polydipsia Hematologic/Lymphatic: No: Easy Bruising Physical Exam Narrative GENERAL: Patient appears no obvious distress. SKIN: Warm and dry. Normal color. Normal turgor. No rash. HEAD: Atraumatic. Normocephalic. EYES: Pupils equal and round. No scleral icterus. No injection or drainage. ENT: No nasal bleeding or discharge. Mucous membranes pink and moist. Pharynx is clear. Airways patent NECK: Trachea midline. Supple and nontender. CARDIOVASCULAR: Regular rate and rhythm. RESPIRATORY: No accessory muscle use. Clear to auscultation. Breath sounds equal bilaterally. GASTROINTESTINAL: Abdomen soft, non-tender, nondistended. Hepatic and splenic margins not palpable. No CVA tenderness. MUSCULOSKELETAL: Extremities without clubbing, cyanosis, or edema. No obvious deformities. NEUROLOGICAL: Awake and alert. No obvious cranial nerve deficits. Motor grossly within normal limits. Patient has 4 out of 5 muscle strength in arms and legs. Normal speech. PSYCHIATRIC: Appropriate mood and affect; insight and judgment normal. Data Data Last Documented VS Vital Signs Date Time Temp Pulse Resp B/P (MAP) Pulse Ox O2 Delivery O2 Flow Rate FiO2 06/21/17 09:25 98.6 71 18 169/73 (105) 97 Orders Orders Complete Blood Count With Diff (06/21/17 09:43) Comprehensive Metabolic Panel (06/21/17 09:43) Urinalysis - C+S If Indicated (06/21/17 09:43) Iv Access Insert/Monitor (06/21/17 09:43) Ecg Monitoring (06/21/17 09:43) Sodium Chloride 0.9% Flush (Ns Flush) (06/21/17 09:45) Urinary Catheter Insert/Apply (06/21/17 09:43) Urine Culture (06/21/17 10:00) Ceftriaxone Inj (Rocephin Inj) (06/21/17 11:00) Urinary Catheter - Remove (06/21/17 10:47) Labs Laboratory Tests Test 06/21/17 10:00 White Blood Count 7.6 TH/MM3 Red Blood Count 3.72 MIL/MM3 Hemoglobin 12.5 GM/DL Hematocrit 36.7 % Mean Corpuscular Volume 98.7 FL Mean Corpuscular Hemoglobin 33.7 PG Mean Corpuscular Hemoglobin Concent 34.1 % Red Cell Distribution Width 14.5 % Platelet Count 281 TH/MM3 Mean Platelet Volume 7.8 FL Neutrophils (%) (Auto) 72.6 % Lymphocytes (%) (Auto) 15.5 % Monocytes (%) (Auto) 5.2 % Eosinophils (%) (Auto) 6.1 % Basophils (%) (Auto) 0.6 % Neutrophils # (Auto) 5.5 TH/MM3 Lymphocytes # (Auto) 1.2 TH/MM3 Monocytes # (Auto) 0.4 TH/MM3 Eosinophils # (Auto) 0.5 TH/MM3 Basophils # (Auto) 0.0 TH/MM3 CBC Comment DIFF FINAL Differential Comment Urine Color YELLOW Urine Turbidity CLEAR Urine pH 8.0 Urine Specific [place] 1.018 Urine Protein 30 mg/dL Urine Glucose (UA) NEG mg/dL Urine Ketones NEG mg/dL Urine Occult Blood NEG Urine Nitrite NEG Urine Bilirubin NEG Urine Urobilinogen LESS THAN 2.0 MG/DL Urine Leukocyte Esterase LARGE Urine RBC 3 /hpf Urine WBC 32 /hpf Urine Transitional Epithelial Cells <1 /hpf Urine Mucus FEW /lpf Microscopic Urinalysis Comment CULTURE INDICATED Blood Urea Nitrogen 17 MG/DL Creatinine 1.03 MG/DL Random Glucose 102 MG/DL Total Protein 6.9 GM/DL Albumin 3.7 GM/DL Calcium Level 8.3 MG/DL Alkaline Phosphatase 95 U/L Aspartate Amino Transf (AST/SGOT) 32 U/L Alanine Aminotransferase (ALT/SGPT) 28 U/L Total Bilirubin 0.2 MG/DL Sodium Level 142 MEQ/L Potassium Level 4.1 MEQ/L Chloride Level 112 MEQ/L Carbon Dioxide Level 26.2 MEQ/L Anion Gap 4 MEQ/L Estimat Glomerular Filtration Rate 52 ML/MIN MDM Medical Decision Making Medical Screen Exam Complete: Yes Emergency Medical Condition: Yes Medical Record Reviewed: Yes Differential Diagnosis Urinary retention. Dysuria. Urinary tract infection. Complication of MS. Narrative Course Labs ordered including CBC, CMP, and urinalysis. Husain catheter is placed but no large amount of urine is found after placement. The patient does not seem to be retaining urine. CBC is unremarkable. Chemistries show chloride of 112, anion gap is 4, creatinine is 1.03, GFR 52, calcium 8.3 otherwise unremarkable. Urinalysis suggestive of a urinary tract infection with large leukocyte esterase , greater than 32 white blood cells per high-power field, and urine was cultured. Patient is given 1000 mg Rocephin IV. Patient will be continued on Keflex 5 mg 3 times daily 7 days. Patient also given Pyridium 100 mg 3 times daily #12 Husain catheter is removed. Patient should follow-up with her primary care physician in the next several days to ensure improvement. Recommend follow-up with urologist if symptoms persist. Patient can return to emergency department if necessary if symptoms worsen. Diagnosis Primary Impression: Urinary tract infection Qualified Codes: N30.00 - Acute cystitis without hematuria Referrals: Primary Care Physician call for appointment Patient Instructions: Dysuria (ED), General Instructions Additional Instructions: The patient does not seem to be retaining urine. CBC is unremarkable. Chemistries show chloride of 112, anion gap is 4, creatinine is 1.03, GFR 52, calcium 8.3 otherwise unremarkable. Urinalysis suggestive of a urinary tract infection with large leukocyte esterase , greater than 32 white blood cells per high-power field, and urine was cultured. Patient is given 1000 mg Rocephin IV. Patient will be continued on Keflex 5 mg 3 times daily 7 days. Patient also given Pyridium 100 mg 3 times daily #12 Husain catheter is removed. Patient should follow-up with her primary care physician in the next several days to ensure improvement. Recommend follow-up with urologist if symptoms persist. Patient can return to emergency department if necessary if symptoms worsen. Med/Other Pt SpecificInfo: Prescription(s) given Disposition: 01 DISCHARGE HOME Condition: Stable Amol Haji Jun 21, 2017 10:10
[2017-06-21] MEDS ORDERED: OCRE300V (10:19)
[2017-06-21] MEDS ORDERED: ASPI-516 CHEW (10:19)
[2017-06-21] MEDS ORDERED: OXYC1TAB36 (10:19)
[2017-06-21] MEDS ORDERED: ESCI20TA PO (10:19)
[2017-06-21] MEDS ORDERED: DULO1CAP3 PO (10:19)
[2017-06-21] MEDS ORDERED: BACL20TA PO (10:19)
[2017-06-21] MEDS ORDERED: DENO60P SQ (10:19)
[2017-06-21] MEDS ORDERED: MIRT1TAB PO (10:19)
[2017-06-21] MEDS ORDERED: SENN8.6T36 PO (10:19)
[2017-06-21] MEDS ORDERED: CARB25TA18 (10:19)
[2017-06-21] MEDS ORDERED: LORA0.5T PO (10:19)
[2017-06-21 10:20] LABS: AUTOMATED NEUTROPHIL # 5.5 TH/MM3 (1.8-7.7); BASOPHIL % 0.6 % (0.0-2.0); EOSINOPHIL # 0.5 TH/MM3 (0-0.4); EOSINOPHIL % 6.1 % (0.0-4.0); HEMATOCRIT 36.7 % (35.0-46.0); HEMOGLOBIN 12.5 GM/DL (11.6-15.3); LYMPH % 15.5 % (9.0-44.0); LYMPHOCYTE # 1.2 TH/MM3 (1.0-4.8); MEAN CELL VOLUME 98.7 FL (80.0-100.0); MEAN CORPUSCULAR HEMOGLOBIN 33.7 PG (27.0-34.0); MEAN CORPUSCULAR HGB CONC 34.1 % (32.0-36.0); MEAN PLATELET VOLUME 7.8 FL (7.0-11.0); MONO % 5.2 % (0.0-8.0); MONOCYTE # 0.4 TH/MM3 (0-0.9); NEUT % 72.6 % (16.0-70.0); PLATELET COUNT 281 TH/MM3 (150-450); RED BLOOD COUNT 3.72 MIL/MM3 (4.00-5.30); RED CELL DISTRIBUTION WIDTH 14.5 % (11.6-17.2); WHITE BLOOD COUNT 7.6 TH/MM3 (4.0-11.0)
[2017-06-21 10:34] LABS: BILIRUBIN, URINE NEG (NEG); BLOOD, URINE NEG (NEG); GLUCOSE,URINE NEG (NEG); KETONE, URINE NEG (NEG); MUCUS URINE FEW /lpf (OCC); NITRITE,URINE NEG (NEG); TRANSITIONAL EPI CELLS, URINE <1 /hpf; URINE COLOR YELLOW (YELLW/STRAW); URINE LEUKOCYTE ESTERASE LARGE (NEG)
[2017-06-21 10:41] LABS: ALKALINE PHOSPHATASE 95 U/L (45-117); ALT (GPT) 28 U/L (10-53); TOTAL BILIRUBIN ADULT 0.2 MG/DL (0.2-1.0); TOTAL PROTEIN 6.9 GM/DL (6.4-8.2)
[2017-06-21 10:51] LABS: ALBUMIN 3.7 GM/DL (3.4-5.0); AST (GOT) 32 U/L (15-37); BICARBONATE 26.2 MEQ/L (21.0-32.0); BLOOD UREA NITROGEN 17 MG/DL (7-18); CALCIUM 8.3 MG/DL (8.5-10.1); CHLORIDE 112 MEQ/L (98-107); CREATININE 1.03 MG/DL (0.50-1.00); GLOMERULAR FILTRATION RATE 52 ML/MIN (>89); GLUCOSE,RANDOM 102 MG/DL (74-106); SODIUM (NA) 142 MEQ/L (136-145)
[2017-06-21] MEDS ORDERED: cefTRIAXone INJ 1,000 MG in SODIUM CHLORIDE 0.9% INJ 100 ML IV ONE (11:00)
[2017-06-21] MEDS ORDERED: CEPH-460 PO (11:15)
[2017-06-21] MEDS ORDERED: PHEN0.4T PO (11:15)
== END 2017-06-21 11:48 | disposition home or self-care (01) ==
LOC: NEPD 09:23
DX: N39.0 Urinary tract infection, site not specified (principal); G35 Multiple sclerosis; F41.9 Anxiety disorder, unspecified; J44.9 Chronic obstructive pulmonary disease, unspecified; K21.9 Gastro-esophageal reflux disease without esophagitis; I10 Essential (primary) hypertension
CPT/HCPCS: 51702; 80053; 81001; 85025; 87086; 96365; 99284; J0696

== ENCOUNTER 2017-06-27 01:26 | Inpatient (IN) | payer OTHER, MEDICARE ==
[~2017-06-27] VITALS: Ht 152.4 cm; Wt 53.3 kg
[~2017-06-27 01:26] MED LIST changes: -AMLO5 PO; -AMOX875T2 PO; +ASPI-516 CHEW; +BACL20TA PO; +CARB25TA18; +CEPH-460 PO; +DENO60P SQ; -DONE10TA7 PO; +DULO1CAP3 PO; +ESCI20TA PO; -LACT10SO PO; +LORA0.5T PO; +MIRT1TAB PO; -NORC5TAB PO; +OCRE300V; +OXYC1TAB36; +PHEN0.4T PO; +SENN8.6T36 PO
[2017-06-27 01:29] VITALS: BP 133/61; PULSE 70; RESP 16; TEMP 98.6; O2SAT 99
[2017-06-27 01:56] VITALS: BP 145/64; PULSE 63; RESP 18; O2SAT 93
[2017-06-27 03:33] LABS: AUTOMATED NEUTROPHIL # 5.5 TH/MM3 (1.8-7.7); BASOPHIL % 0.6 % (0.0-2.0); EOSINOPHIL # 0.2 TH/MM3 (0-0.4); EOSINOPHIL % 2.6 % (0.0-4.0); HEMATOCRIT 33.9 % (35.0-46.0); HEMOGLOBIN 11.4 GM/DL (11.6-15.3); LYMPH % 8.4 % (9.0-44.0); LYMPHOCYTE # 0.5 TH/MM3 (1.0-4.8); MEAN CELL VOLUME 97.9 FL (80.0-100.0); MEAN CORPUSCULAR HEMOGLOBIN 32.8 PG (27.0-34.0); MEAN CORPUSCULAR HGB CONC 33.5 % (32.0-36.0); MEAN PLATELET VOLUME 7.8 FL (7.0-11.0); MONO % 4.7 % (0.0-8.0); MONOCYTE # 0.3 TH/MM3 (0-0.9); NEUT % 83.7 % (16.0-70.0); PLATELET COUNT 304 TH/MM3 (150-450); RED BLOOD COUNT 3.47 MIL/MM3 (4.00-5.30); RED CELL DISTRIBUTION WIDTH 14.7 % (11.6-17.2); WHITE BLOOD COUNT 6.5 TH/MM3 (4.0-11.0)
--- NOTE | 2017-06-27 03:49 | PD ---
HPI Chief Complaint: Complaint Time Seen by Provider: 02:13 Travel History International Travel<30 days: No Contact w/Intl Traveler<30days: No Traveled to known affect area: No History of Present Illness HPI Patient is a 76-year-old female with multiple sclerosis which is progressing patient was in our ER 5 days ago with urinary retention. She had a Urban placed urine was sent cultures did not grow any infection patient was placed on Keflex and sent home with Pyridium and Keflex then she followed up the next day with her urologist Dr mata . He gave her Flomax but now she is decreased to where she no longer is putting out urine and her super pubic area swelling and she feels tender and pain. Patient is been much more lethargic in the ER she is lying in the bed lethargic mouth open had back while sleeping . them she is very halted with her speech when awake PFSH Past Medical History Arthritis: No Asthma: No Autoimmune Disease: No Blood Disorders: No Anxiety: Yes Depression: No Heart Rhythm Problems: No Cancer: No Cardiovascular Problems: Yes (HTN) High Cholesterol: No Chemotherapy: No Chest Pain: No Congestive Heart Failure: No COPD: Yes Cerebrovascular Accident: No Diabetes: No Diminished Hearing: No Endocrine: No Gastrointestinal Disorders: Yes GERD: Yes Glaucoma: No Genitourinary: No Headaches: No Hepatitis: No Hiatal Hernia: No Hypertension: Yes Immune Disorder: No Kidney Stones: No Musculoskeletal: Yes (MS, scoliosis) Neurologic: Yes Psychiatric: No Reproductive: No Respiratory: Yes (COPD, O2 PRN) Migraines: No Myocardial Infarction: No Radiation Therapy: No Renal Failure: No Seizures: No Sickle Cell Disease: No Sleep Apnea: No Thyroid Disease: No Ulcer: Yes Influenza Vaccination: No ?: Not Menopausal: Yes Past Surgical History Abdominal Surgery: Yes (ruptured bowel with colostomy reversal) AICD: No Appendectomy: No Cardiac Surgery: No Cholecystectomy: Yes Ear Surgery: No Endocrine Surgery: No Eye Surgery: No Genitourinary Surgery: No Gynecologic Surgery: No Joint Replacement: Yes (HIP bilateral) Neurologic Surgery: No Oral Surgery: No Pacemaker: No Thoracic Surgery: No Other Surgery: Yes Social History Alcohol Use: No Tobacco Use: No Substance Use: No Allergies-Medications (Allergen,Severity, Reaction): Coded Allergies: codeine (Unverified Allergy, Severe, Hallucinations, 2/4/18) Reported Meds & Prescriptions Reported Meds & Active Scripts Active Reported Senna-Tabs (Sennosides) 8.6 Mg Tab 8.6 Mg PO DAILY Prolia Inj (Denosumab) 60 Mg/Ml Inj 60 Mg SQ Q180D Ocrevus (Ocrelizumab) 300 Mg/10 Ml Vial Mirtazapine 7.5 Mg Tab 7.5 Mg PO HS Escitalopram (Escitalopram Oxalate) 20 Mg Tab 20 Mg PO DAILY Duloxetine DR (Duloxetine HCl) 60 Mg Capdr 60 Mg PO DAILY Carbidopa-Levo 25-100 mg Odt (Carbidopa/Levodopa) 25 Mg-100 Mg Tab.rapdis Baclofen 20 Mg Tab 20 Mg PO QID Aspirin 81 Mg Chew 81 Mg CHEW DAILY Tamsulosin (Tamsulosin HCl) 0.4 Mg Cap 0.4 Mg PO HS Ranitidine (Ranitidine HCl) 150 Mg Tab 150 Mg PO DAILY Duoneb (Ipratropium-Albuterol Neb) 0.5-2.5 Mg/3 Ml Neb 1 Nebule INH Q6HR NEB B-12 (Cyanocobalamin) 1,000 Mcg Subl 1,000 Mcg SL DAILY Calcium 500 +D (Calcium Carbonate-Cholecalciferol) 500-400 Mg-Unit Tab 1 Tab PO DAILY Bupropion HCl 75 Mg Tab 75 Mg PO BID Anoro Ellipta Inh (Umeclidinium/Vilanterol) 62.5-25 Mcg/Act Aero 1 Puff INH DAILY Review of Systems ROS Limitations: Altered Mental Status (lethargic) Except as stated in HPI: all other systems reviewed are Neg Physical Exam Narrative GENERAL: sleeping with head back mouth open, sleeps thru my entire interview with to get HPI SKIN: Warm and dry. HEAD: Atraumatic. Normocephalic. EYES: Pupils equal and round. No scleral icterus. No injection or drainage. ENT: No nasal bleeding or discharge. Mucous membranes pink and moist. NECK: Trachea midline. No JVD. CARDIOVASCULAR: Regular rate and rhythm. RESPIRATORY: No accessory muscle use. Clear to auscultation. Breath sounds equal bilaterally. GASTROINTESTINAL: Abdomen Tender suprpubic slightly distended . Hepatic and splenic margins not palpable. MUSCULOSKELETAL: Extremities without clubbing, cyanosis, or edema. No obvious deformities. NEUROLOGICAL: no focal deficits appreciated Mild tenderness and distention to the suprapubic area on the abdomen exam URBAN PLACED AND SHE STILL HAS PAIN urine orange from the Pyridium she is currently taking from [place]. Data Data Last Documented VS Vital Signs Date Time Temp Pulse Resp B/P (MAP) Pulse Ox O2 Delivery O2 Flow Rate FiO2 06/27/17 01:56 63 18 145/64 (91) 93 Room Air 06/27/17 01:29 98.6 Orders Orders Complete Blood Count With Diff (06/27/17 02:18) Comprehensive Metabolic Panel (06/27/17 02:18) Urinalysis - C+S If Indicated (06/27/17 02:18) Urine Culture (06/27/17 02:50) Morphine Inj (Morphine Inj) (06/27/17 04:45) Ceftriaxone Inj (Rocephin Inj) (06/27/17 04:45) Ct Abd/Pel W/O Iv Contrast (06/27/17 ) Ondansetron Inj (Zofran Inj) (06/27/17 04:56) Ondansetron Inj (Zofran Inj) (06/27/17 05:00) Admit Order (Ed Use Only) (06/27/17 05:16) Labs Laboratory Tests Test 06/27/17 02:50 White Blood Count 6.5 TH/MM3 Red Blood Count 3.47 MIL/MM3 Hemoglobin 11.4 GM/DL Hematocrit 33.9 % Mean Corpuscular Volume 97.9 FL Mean Corpuscular Hemoglobin 32.8 PG Mean Corpuscular Hemoglobin Concent 33.5 % Red Cell Distribution Width 14.7 % Platelet Count 304 TH/MM3 Mean Platelet Volume 7.8 FL Neutrophils (%) (Auto) 83.7 % Lymphocytes (%) (Auto) 8.4 % Monocytes (%) (Auto) 4.7 % Eosinophils (%) (Auto) 2.6 % Basophils (%) (Auto) 0.6 % Neutrophils # (Auto) 5.5 TH/MM3 Lymphocytes # (Auto) 0.5 TH/MM3 Monocytes # (Auto) 0.3 TH/MM3 Eosinophils # (Auto) 0.2 TH/MM3 Basophils # (Auto) 0.0 TH/MM3 CBC Comment DIFF FINAL Differential Comment Urine Color DARK-BROWN Urine Turbidity CLEAR Urine pH 5.5 Urine Specific [place] 1.024 Urine Protein 30 mg/dL Urine Glucose (UA) NEG mg/dL Urine Ketones NEG mg/dL Urine Occult Blood NEG Urine Nitrite POS Urine Bilirubin MOD Urine Urobilinogen 8.0 MG/DL Urine Leukocyte Esterase SMALL Urine RBC 3 /hpf Urine WBC 62 /hpf Urine WBC Clumps FEW Urine Squamous Epithelial Cells 2 /hpf Urine Bacteria RARE /hpf Microscopic Urinalysis Comment CULTURE INDICATED Blood Urea Nitrogen 23 MG/DL Creatinine 1.44 MG/DL Random Glucose 111 MG/DL Total Protein 6.7 GM/DL Albumin 3.7 GM/DL Calcium Level 7.9 MG/DL Alkaline Phosphatase 80 U/L Aspartate Amino Transf (AST/SGOT) 22 U/L Alanine Aminotransferase (ALT/SGPT) 16 U/L Total Bilirubin 0.4 MG/DL Sodium Level 143 MEQ/L Potassium Level 5.0 MEQ/L Chloride Level 113 MEQ/L Carbon Dioxide Level 23.5 MEQ/L Anion Gap 7 MEQ/L Estimat Glomerular Filtration Rate 35 ML/MIN MDM Medical Decision Making Medical Screen Exam Complete: Yes Emergency Medical Condition: Yes Medical Record Reviewed: Yes Differential Diagnosis UTI neurogenic bladder bleeding clot outlet obstruction, vs MS bladder sphincter issue Narrative Course pt has UTI inspite of the keflex she is on I will admit for inpt urology consult as she has failed outpt managenmtnand this is a repeat visit for same problem seen in ER and PCP office and still has issue CT done for further eval Diagnosis Primary Impression: UTI (urinary tract infection) Additional Impressions: Urinary retention MS (multiple sclerosis) Scripts Sulfamethoxazole-Trimethoprim (Bactrim DS) 800-160 Mg Tab 1 TAB PO BID for Infection, #6 TAB 0 Refills Prov: Cortes Castillo MD 06/29/17 Oxycodone HCl/Acetaminophen (Oxycodone-Acetaminophen 10-325) 10 Mg-325 Mg Tablet 1 TAB PO Q6HR for Pain, #10 TAB 0 Refills Prov: Cortes Castillo MD 06/29/17 Lorazepam (Lorazepam) 0.5 Mg Tab 0.5 MG PO DAILY Y for ANXIETY, #3 TAB 0 Refills Prov: Cortes Castillo MD 06/29/17 Joe Burton MD Jun 27, 2017 03:49
[2017-06-27 03:57] LABS: ALKALINE PHOSPHATASE 80 U/L (45-117); TOTAL BILIRUBIN ADULT 0.4 MG/DL (0.2-1.0); TOTAL PROTEIN 6.7 GM/DL (6.4-8.2)
[2017-06-27 04:11] LABS: ALBUMIN 3.7 GM/DL (3.4-5.0); ALT (GPT) 16 U/L (10-53); AST (GOT) 22 U/L (15-37); BICARBONATE 23.5 MEQ/L (21.0-32.0); BLOOD UREA NITROGEN 23 MG/DL (7-18); CALCIUM 7.9 MG/DL (8.5-10.1); CHLORIDE 113 MEQ/L (98-107); CREATININE 1.44 MG/DL (0.50-1.00); GLOMERULAR FILTRATION RATE 35 ML/MIN (>89); GLUCOSE,RANDOM 111 MG/DL (74-106); SODIUM (NA) 143 MEQ/L (136-145)
[2017-06-27 04:18] LABS: BACTERIA, URINE RARE /hpf; BILIRUBIN, URINE MOD (NEG); BLOOD, URINE NEG (NEG); GLUCOSE,URINE NEG (NEG); KETONE, URINE NEG (NEG); NITRITE,URINE POS (NEG); PH, URINE 5.5 (5.0-8.5); SQUAMOUS EPITHELIAL CELL URINE 2 /hpf (0-5); URINE LEUKOCYTE ESTERASE SMALL (NEG); WHITE BLOOD CELL CLUMPS FEW
[2017-06-27 04:19] LABS: URINE COLOR DARK-BROWN (YELLW/STRAW)
[2017-06-27] MEDS ORDERED: MORPHINE SULFATE 2 MG/ML INJ IV PUSH ONE (04:45)
[2017-06-27] MEDS ORDERED: cefTRIAXone INJ 1,000 MG in SODIUM CHLORIDE 0.9% INJ 100 ML IV ONE (04:45)
[2017-06-27] MEDS ORDERED: ONDANSETRON HCL 4 MG/2 ML VIAL ONE (04:56)
[2017-06-27] MEDS ORDERED: ONDANSETRON HCL 4 MG/2 ML VIAL IV PUSH ONE (05:00)
[2017-06-27] MEDS ORDERED: ACETAMINOPHEN 325 MG TAB PO PRN (05:15)
[2017-06-27] MEDS ORDERED: BISACODYL 10 MG SUPP RECTAL PRN (05:15)
[2017-06-27] MEDS ORDERED: MORPHINE SULFATE 2 MG/ML INJ IV PUSH PRN ×2 (05:15)
[2017-06-27] MEDS ORDERED: LORazepam 0.5 MG TAB PO PRN (05:15)
[2017-06-27] MEDS ORDERED: SODIUM CHLORIDE 0.9% FLUSH 10 ML FLUSH IV FLUSH PRN (05:15)
[2017-06-27] MEDS ORDERED: LACTULOSE SYRUP 20 GM/30 ML CUP PO PRN (05:15)
[2017-06-27] MEDS ORDERED: SENNOSIDES 8.6 MG TAB PO PRN (05:15)
[2017-06-27] MEDS ORDERED: ONDANSETRON HCL 4 MG/2 ML VIAL IVP PRN (05:15)
[2017-06-27] MEDS ORDERED: PILL SPLITTER OTHER PRN (05:45)
--- NOTE | 2017-06-27 05:46 | HHI.HP ---
HPI Service [facility] Primary Care Physician Philly Curry DO Admission Diagnosis urinary retention Diagnoses: (1) Urinary retention Diagnosis: Principal (2) UTI (urinary tract infection) Diagnosis: Principal (3) Failure of outpatient treatment Diagnosis: Principal (4) MS (multiple sclerosis) Diagnosis: Principal Travel History International Travel<30 Days: No Contact w/Intl Traveler <30 Da: No Traveled to Known Affected Are: No History of Present Illness A 76-year-old female with a PMH of Multiple Sclerosis, Anxiety, Parkinson's, COPD and Urinary Retention who to the ER by secondary to urinary retention x5 days and lethargy. Seen in ER on 06/21/17 for similar symptoms, s/p Husain placement and started on Keflex/Pyridium for UTI. Seen by Dr. Méndez in office and started on Flomax w/ removal of Husain. reports pt w/ minimal urine output and c/o abdominal pain. Pt reports pain suprapubic, severe , 8-9/10, non-radiating. S/p Husain placement w/ 200ml urine output. On arrival , BP 169/73, HR 71, O2 sat 97% on RA, Afebrile. CBC essentially unremarkable. Creatinine 1.44, previously 1.03 on 06/21/17. UA with UTI. S/p Rocephin in ER. Follows w/ Dr. Nuñez w/ Neurology for h/o MS Review of Systems Except as stated in HPI: all other systems reviewed are Neg ROS: 14 point review of systems otherwise negative. Past Family Social History Past Medical History PMH: Multiple Sclerosis, Anxiety, Parkinson's, COPD and Urinary Retention Past Surgical History PAST SURGICAL HISTORY: Colostomy with Reversal, Bilateral Hip Replacement, Cholecystectomy Allergies: Coded Allergies: codeine (Unverified Allergy, Severe, Hallucinations, 06/21/17) Family History PAST FAMILY HISTORY: Reviewed. No h/o DM or CAD Social History PAST SOCIAL HISTORY: Negative for alcohol, tobacco or drugs. Physical Exam Vital Signs Vital Signs Date Time Temp Pulse Resp B/P (MAP) Pulse Ox O2 Delivery O2 Flow Rate FiO2 06/27/17 01:56 63 18 145/64 (91) 93 Room Air 06/27/17 01:29 98.6 70 16 133/61 (85) 99 Room Air Physical Exam PE: GENERAL: Very pleasant elderly white female in no acute distress, slow to speak. at bedside. HEENT: PERRLA, EOMI. No scleral icterus or conjunctival pallor. No lid lag or facial droop. CARDIOVASCULAR: Regular rate and rhythm. No obvious murmurs to auscultation. No chest tenderness to palpation. RESPIRATORY: No obvious rhonchi or wheezing. Clear to auscultation. Breath sounds equal bilaterally. GASTROINTESTINAL: Abdomen soft, suprapubic tenderness to palpation, nondistended. BS normal. Husain in place. MUSCULOSKELETAL: Extremities without clubbing, cyanosis, or edema. No obvious deformities. NEUROLOGICAL: Awake, alert and oriented x4. No focal neurologic deficits. Moving both upper and lower extremities spontaneously. Laboratory Laboratory Tests Test 06/27/17 02:50 White Blood Count 6.5 Red Blood Count 3.47 Hemoglobin 11.4 Hematocrit 33.9 Mean Corpuscular Volume 97.9 Mean Corpuscular Hemoglobin 32.8 Mean Corpuscular Hemoglobin Concent 33.5 Red Cell Distribution Width 14.7 Platelet Count 304 Mean Platelet Volume 7.8 Neutrophils (%) (Auto) 83.7 Lymphocytes (%) (Auto) 8.4 Monocytes (%) (Auto) 4.7 Eosinophils (%) (Auto) 2.6 Basophils (%) (Auto) 0.6 Neutrophils # (Auto) 5.5 Lymphocytes # (Auto) 0.5 Monocytes # (Auto) 0.3 Eosinophils # (Auto) 0.2 Basophils # (Auto) 0.0 CBC Comment DIFF FINAL Differential Comment Urine Color DARK-BROWN Urine Turbidity CLEAR Urine pH 5.5 Urine Specific [place] 1.024 Urine Protein 30 Urine Glucose (UA) NEG Urine Ketones NEG Urine Occult Blood NEG Urine Nitrite POS Urine Bilirubin MOD Urine Urobilinogen 8.0 Urine Leukocyte Esterase SMALL Urine RBC 3 Urine WBC 62 Urine WBC Clumps FEW Urine Squamous Epithelial Cells 2 Urine Bacteria RARE Microscopic Urinalysis Comment CULTURE INDICATED Blood Urea Nitrogen 23 Creatinine 1.44 Random Glucose 111 Total Protein 6.7 Albumin 3.7 Calcium Level 7.9 Alkaline Phosphatase 80 Aspartate Amino Transf (AST/SGOT) 22 Alanine Aminotransferase (ALT/SGPT) 16 Total Bilirubin 0.4 Sodium Level 143 Potassium Level 5.0 Chloride Level 113 Carbon Dioxide Level 23.5 Anion Gap 7 Estimat Glomerular Filtration Rate 35 Date/Time Source Procedure Growth Status 06/27/17 02:50 Urine Clean Catch Urine Culture Pending Received Result Diagram: 06/27/1724906/27/17249 Caprini VTE Risk Assessment Caprini VTE Risk Assessment: No/Low Risk (score <= 1) Caprini Risk Assessment Model Point Value = 1 Point Value = 2 Point Value = 3 Point Value = 5 Age 41-60 Minor surgery BMI > 25 kg/m2 Swollen legs Varicose veins or History of unexplained or recurrent spontaneous Oral contraceptives or hormone replacement Sepsis (< 1 month) Serious lung disease, including pneumonia (< 1 month) Abnormal pulmonary function Acute myocardial infarction Congestive heart failure (< 1 month) History of inflammatory bowel disease Medical patient at bed rest Age 61-74 Arthroscopic surgery Major open surgery (> 45 min) Laparoscopic surgery (> 45 min) Malignancy Confined to bed (> 72 hours) Immobilizing plaster cast Central venous access Age >= 75 History of VTE Family history of VTE Factor V Leiden Prothrombin [id number] Lupus anticoagulant Anticardiolipin antibodies Elevated serum homocysteine Heparin-induced thrombocytopenia Other congenital or acquired thrombophilia Stroke (< 1 month) Elective arthroplasty Hip, pelvis, or leg fracture Acute spinal cord injury (< 1 month) Prophylaxis Regimen Total Risk Factor Score Risk Level Prophylaxis Regimen 0-1 Low Early ambulation 2 Moderate Order ONE of the following: *Sequential Compression Device (SCD) *Heparin 5000 units SQ BID 3-4 Higher Order ONE of the following medications: *Heparin 5000 units SQ TID *Enoxaparin/Lovenox 40 mg SQ daily (WT < 150 kg, CrCl > 30 mL/min) *Enoxaparin/Lovenox 30 mg SQ daily (WT < 150 kg, CrCl > 10-29 mL/min) *Enoxaparin/Lovenox 30 mg SQ BID (WT < 150 kg, CrCl > 30 mL/min) AND/OR *Sequential Compression Device (SCD) 5 or more Highest Order ONE of the following medications: *Heparin 5000 units SQ TID (Preferred with Epidurals) *Enoxaparin/Lovenox 40 mg SQ daily (WT < 150 kg, CrCl > 30 mL/min) *Enoxaparin/Lovenox 30 mg SQ daily (WT < 150 kg, CrCl > 10-29 mL/min) *Enoxaparin/Lovenox 30 mg SQ BID (WT < 150 kg, CrCl > 30 mL/min) AND *Sequential Compression Device (SCD) Assessment and Plan Problem List: (1) Urinary retention ICD Code: R33.9 - Retention of urine, unspecified (2) UTI (urinary tract infection) ICD Code: N39.0 - Urinary tract infection, site not specified (3) Failure of outpatient treatment ICD Code: Z78.9 - Other specified health status (4) MS (multiple sclerosis) ICD Code: G35 - Multiple sclerosis Assessment and Plan A/P: 1. Urinary Retention: Recurrent. H/o similar symptoms, s/p Husain placement/ removal, now w/ recurrent urinary retention. S/p Husain in ER w/ minimal urine output, 200ml. Monitor I/O closely. IVF for hydration. Follows w/ Dr. Méndez, will consult for further recommendations. ?MS component, will consult Dr. Nuñez for eval. 2. UTI: Recurrent. U/a w/ UTI, follow cultures, continue IV Rocephin, IVF for hydration. 3. Failed Outpt Tx: seen in ER on 06/21/17 for similar symptoms, d/c'd w/ Keflex for UTI, now w/ persistent UTI. Previous cultures reviewed by me, Urine 05/21/17 +E. Coli. 4. MS: Resume home medications. PT for eval/tx. Will consult Dr. Nuñez as above for further recommendations. 5. DVT Prophylaxis: SCD/Teds. 6. Social work for d/c planning as needed. 7. Case discussed w/ ER physician at length, labs/records/imaging reviewed by me. Physician Certification 2 Midnight Certification Type: Admission for Inpatient Services Order for Inpatient Services The services are ordered in accordance with Medicare regulations or non- Medicare payer requirements, as applicable. In the case of services not specified as inpatient-only, they are appropriately provided as inpatient services in accordance with the 2-midnight benchmark. Estimated LOS (days): 2 days is the estimated time the patient will need to remain in the hospital, assuming treatment plan goals are met and no additional complications. Post-Hospital Plan: Not yet determined Uzma Marr MD Jun 27, 2017 05:45
--- NOTE | 2017-06-27 06:24 | RADRPT ---
EXAM DATE/TIME: 06/27/2017 05:44 [facility] COMPARISON: No previous studies available for comparison. INDICATIONS : Abdominal pain; cystitis and bladder retention. ORAL CONTRAST: No oral contrast ingested. RADIATION DOSE: 5.68 CTDIvol (mGy) MEDICAL HISTORY : Hypertension. Chronic obstructive pulmonary disease. Cardiovascular disease SURGICAL HISTORY : Cholecystectomy. Bilateral hip replacements ENCOUNTER: Initial ACUITY: 1 day PAIN SCALE: 7/10 LOCATION: abdomen TECHNIQUE: Volumetric scanning of the abdomen and pelvis was performed. Using automated exposure control and ad justment of the mA and/or kV according to patient size, radiation dose was kept as low as reasonably achievable to obtain optimal diagnostic quality images. DICOM format image data is available electro nically for review and comparison. FINDINGS: Basilar lung scarring or atelectasis present. Calcified granuloma left lung base. Postoperative tamara cystectomy. Pneumobilia present. Otherwise no acute findings in the liver, spleen, adrenals, left kidney. There is a cystic-appearing lesion lower pole right kidney measuring up to 5 cm in diameter with a small nonobstructing calculus. No free fluid. No bowel obstruction. No adenopathy. Mild constipation. Numerous compression deformities in the lower thoracic and lumbar spine previous kyphoplasty at L5 an d L2. Mild compression fracture L1. Mild scoliosis. Husain catheter in decompressed bladder. Previous bilateral hip replacement. CONCLUSION: 1. No obstruction, free fluid or free air. Bladder decompressed by Husain. 2. Previous cholecystectomy with pneumobilia. 5 cm right renal cyst with nonobstructing 2 mm calcific ation. 3. Multiple compression deformities in the lumbar spine with mild scoliosis as above. Previous bilate ral hip replacement. Omar Ivy MD on June 27, 2017 at 6:16 Board Certified Radiologist. This report was verified electronically.
[2017-06-27 07:30] VITALS: BP 133/61; PULSE 60; RESP 19; TEMP 97.3; O2SAT 98
[2017-06-27] MEDS: ESCITALOPRAM OXALATE 20 MG TAB PO SCH (08:37)
[2017-06-27] MEDS: SODIUM CHLORIDE 0.9% FLUSH 10 ML FLUSH IV FLUSH SCH ×2 (08:38→21:00)
[2017-06-27] MEDS: DOCUSATE SODIUM 50 MG/SENNA 8.6 MG TAB PO SCH ×2 (08:38→22:53)
[2017-06-27] MEDS: DULoxetine HCl DR 60 MG CAP PO SCH (08:39)
[2017-06-27] MEDS: SODIUM CHLOR 0.9% 1000 ML INJ 1,000 ML IV SCH ×3 (08:41→22:48)
[2017-06-27] MEDS: buPROPion HCL 75 MG TAB PO SCH ×2 (08:50→22:52)
[2017-06-27] MEDS: BACLOFEN 20 MG TAB PO SCH ×4 (08:50→22:52)
--- NOTE | 2017-06-27 09:40 | HHI.PR ---
Subjective Remarks Follow-up urinary retention. Patient states that she has headache, which has been a problem prior to this hospitalization as well. She denies chest pain or dyspnea. No nausea or vomiting. Objective Vitals Vital Signs Date Time Temp Pulse Resp B/P (MAP) Pulse Ox O2 Delivery O2 Flow Rate FiO2 06/27/17 08:46 98 Nasal Cannula 1.00 06/27/17 07:30 97.3 60 19 133/61 (85) 98 06/27/17 06:19 06/27/17 05:52 Room Air 06/27/17 01:56 63 18 145/64 (91) 93 Room Air 06/27/17 01:29 98.6 70 16 133/61 (85) 99 Room Air Result Diagram: 06/27/17 0250 06/27/17 0250 Imaging Last Impressions Abdomen/Pelvis CT 06/27/17 0000 Signed Impressions: Service Date/Time: Tuesday, June 27, 2017 05:44 - CONCLUSION: 1. No obstruction, free fluid or free air. Bladder decompressed by Husain. 2. Previous cholecystectomy with pneumobilia. 5 cm right renal cyst with nonobstructing 2 mm calcification. 3. Multiple compression deformities in the lumbar spine with mild scoliosis as above. Previous bilateral hip replacement. Omar Ivy MD Objective Remarks General: Elderly female in no acute distress. Heart: Regular rate and rhythm. No murmur. Lungs: Clear to auscultation bilaterally. No wheezes, rales, or rhonchi. Breathing is nonlabored. Abdomen: Soft, nontender, nondistended. Extremities: No lower extremity edema. Psych: Alert and oriented. Procedures None Urinary Catheter: Yes Assessment to: Continue Husain insert reason: Obstruction/Retention Vascular Central Line Catheter: No A/P Problem List: (1) Urinary retention ICD Code: R33.9 - Retention of urine, unspecified (2) UTI (urinary tract infection) ICD Code: N39.0 - Urinary tract infection, site not specified (3) Failure of outpatient treatment ICD Code: Z78.9 - Other specified health status (4) MS (multiple sclerosis) ICD Code: G35 - Multiple sclerosis Assessment and Plan 1. Urinary retention, recurrent: Husain catheter in place. Urology consultation is pending. Continue IV fluids. Monitor intake/output. Possibly secondary to MS. Neurology consultation is pending. 2. UTI, recurrent: Culture pending. Continue Rocephin, IV fluids. 3. Multiple sclerosis: Continue home medications. Physical therapy eval. Neurology consultation is pending. 4. DVT prophylaxis: YULY Frye. Cortes Castillo MD Jun 27, 2017 09:40
[2017-06-27 11:42] VITALS: BP 118/54; PULSE 71; RESP 18; TEMP 96.4; O2SAT 98
--- NOTE | 2017-06-27 11:52 | MB ---
cc: NISHA TUBBS M.D. DATE OF CONSULTATION: 06/27/2017. REASON FOR CONSULTATION: History of MS and urinary retention. HISTORY OF PRESENT ILLNESS: This is a patient in the office of Dr. Nuñez. She is a 76-year-old woman with MS who presented to the emergency room five days ago with urinary retention and had a Husain catheter placed and sent cultures out without any infection. However was on Keflex, sent home on Pyridium and Keflex to follow up with her urologist, I believe, Dr. Méndez, who put her on Flomax. Now she is having issues urinating and she has some more confusion. PAST MEDICAL HISTORY: She has a past medical history of: 1. MS. HOME MEDICATIONS: 1. Prolia. 2. Oxycodone. 3. Tylenol. 4. Senna. 5. Ocrevus injection. 6. Mirtazapine. 7. Lorazepam. 8. Escitalopram. 9. Duloxetine. 10. Sinemet. 11. Baclofen. 12. Aspirin. 13. Tamsulosin. 14. Ranitidine. 15. DuoNeb. 16. B12. 17. Calcium. 18. Bupropion. 19. Anoro Ellipta. ALLERGIES: CODEINE. SOCIAL HISTORY: She lives with her . She has had MS for over 20 years. PHYSICAL EXAMINATION: VITAL SIGNS: Temperature is 97.3, pulse 60, respiratory rate 19, blood pressure 133/61 satting at 98% on one liter. She is awake and alert, fluent but is somewhat confused to her medicines. Pupils reactive. Face is symmetrical. Tongue is midline. She knows the date, the month and the year. She knows she is at [place]. Motor lewis, she has fairly good strength in arms but she is diffusely weak in her legs. There is no significant spasticity except for maybe a little in the lower extremities. Gait cannot be assessed. Cerebellar is unremarkable in the upper extremities. Sensory intact. LABS: Labs reviewed. Hemoglobin 11.4, neutrophils 83.7%. Coag panel is normal. Her chemistries show a BUN of 23, creatinine 1.44. Her GFR is 35, it was 52 on June 21. Lactic acid 05/21/2017 was 1.7. Liver function normal. Her B12 05/21/2017 was 1567. Thyroid was intact and 05/21. TSH was 1.290 on 05/21/17. 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 IMPRESSION: History of MS. She is already on Ocrevus. Continue her home medications. I will go ahead and get an MRI of her cervical spine to make sure there is no plaque. However that her creatinine is elevated at this point in time will have to do it without. However, it certainly may be due to her MS. depending on what urology thinks, she may need to self catheter herself or her may need to assist her due to the retention. Continue home medicines. Out of bed with physical therapy and hopefully discharge planning soon. I will go ahead and order the MRI cervical spine. MD VARUN Babcock/BRENDAN /11:07 AM /11:39 AM
--- NOTE | 2017-06-27 13:16 | MB ---
cc: ELISABETH QUEEN DATE OF CONSULTATION: 06/27/17 HISTORY OF PRESENT ILLNESS This is a pleasant 76-year-old female, under the care of Dr. Méndez, who presents with a history of multiple sclerosis and some difficulty with urination per report. She is somewhat of a poor historian. She denies any recent urinary tract infections, but according to the chart a Husain was placed and she was recently treated for one back on 06/21/2017. I do not see a urine culture in the computer system. She does note occasional constipation and she notes nocturia one to two times. Per report, she has been started on Flomax per Dr. Méndez. Her urinalysis on admission showed small leuko esterase with 62 white cells and 3 red cells and nitrite is positive. She does have some tenderness over her bladder region and the Husain is presently in place draining orange colored urine due to Pyridium. The Husain was placed in the emergency room for [address] scan showed normal kidneys with a small 2 mm calcification and a 5 cm right renal cyst. The bladder was decompressed with the Husain. ALLERGIES CODEINE. PAST MEDICAL HISTORY Significant for - 1. Multiple sclerosis. 2. Anxiety. 3. Parkinson's. 4. COPD. 5. Urinary retention. PAST SURGICAL HISTORY 1. Colostomy with reversal. 2. Bilateral hip replacement. 3. Cholecystectomy. FAMILY HISTORY Denies any heart disease or diabetes. SOCIAL HISTORY Currently lives in a jail but she denies alcohol, tobacco or drug usage. REVIEW OF SYSTEMS Notes some lower abdominal pain, constipation, nocturia x1 or 2, lower extremity weakness with inability to ambulate. She denies headache. Denies bleeding disorders. She denies chest pain, shortness of breath. Denies any skin lesions. The remaining review of systems were reviewed and were negative. PHYSICAL EXAMINATION VITAL SIGNS: Temperature 96.4, heart rate 71, respiratory rate 18, 118/54. GENERAL: She is a well-developed, well-nourished 76-year-old female, in no acute distress. HEENT: Normocephalic, atraumatic. Pupils equal, round and reactive to light. Extraocular movements intact. NECK: Supple. HEART: Regular rate and rhythm. LUNGS: Clear. ABDOMEN: Soft. There is some mild SP tenderness, nondistended. Husain in place draining orange colored urine due to Pyridium. EXTREMITIES: No cyanosis, clubbing or edema with some lower extremity weakness demonstrated on physical exam. No skin lesions were identified. LABORATORY VALUES White count is 6.5, hemoglobin 11.4, hematocrit 33.9 platelet count of 304. Sodium 143, potassium 5.0, chloride 113, CO2 23.5, BUN of 23, creatinine 1.4 glucose of 111. Urinalysis: Again, positive nitrate, small leuko esterase, 62 white cells. IMAGING Imaging study shows a 2 mm calcification in the right kidney and a 5 cm cyst. Bladder decompressed. Scoliosis is noted. ASSESSMENT A 76-year-old female with a history of multiple sclerosis and Parkinson's disease with a history of urinary retention. PLAN 1. Continue IV fluids and IV antibiotics. 2. Check urine culture. 3. Maintain Husain catheter. 4. The patient to go home with the Husain catheter in place and follow up with Dr. Méndez on an outpatient basis for void trial. No intervention required at this time. Thank you for the consult and allowing me to participate in the care of this patient. Elisabeth YADAV /12:04 PM /12:49 PM
[2017-06-27 16:34] VITALS: BP 106/56; PULSE 66; RESP 17; TEMP 96.8; O2SAT 99
--- NOTE | 2017-06-27 17:48 | RADRPT ---
EXAM DATE/TIME: 06/27/2017 14:43 [facility] COMPARISON: No previous studies available for comparison. INDICATIONS : Mulitple sclerosis. MEDICAL HISTORY : Hypertension. Chronic obstructive pulmonary disease. Multiple sclerosis. SURGICAL HISTORY : Colostomy. Bilateral hip replacement. ENCOUNTER: Initial ACUITY: 1 day PAIN SCORE: 0/10 LOCATION: [facility] TECHNIQUE: Multiplanar, multisequence MRI examination of the cervical spine was performed. FINDINGS: Vertebral body height is maintained and the vertebral bodies are in normal alignment. Normal signal the marrow of the cervical vertebral bodies. Loss of CSF ventral to the cervical cord at C5-6 and C6 -7 described below. Cervical cord has normal diameter and normal signal characteristics. No evidenc e of syrinx. The visualized posterior fossa structures are intact and the cerebellar tonsils are in orthotopic position. C2-C3: The thecal sac has a normal configuration. There is no evidence of disc herniation or spinal canal s tenosis. The neural foramina are patent bilaterally. C3-C4: The thecal sac has a normal configuration. There is no evidence of disc herniation or spinal canal s tenosis. The neural foramina are patent bilaterally. C4-C5: The thecal sac has a normal configuration. There is no evidence of disc herniation or spinal canal s tenosis. The neural foramina are patent bilaterally. C5-C6: Central bulging of the disc causes focal indentation of the thecal sac, but there still some CSF disc ernible subsequently axial images. The lateral extension. Neural foramen are patent stop C6-C7: Small central disc protrusion is broad-based in configuration post flattening the ventral margin of t he thecal sac. No evidence of cord compression. No extension into the neural foramina on either channing e. C7-T1: The thecal sac has a normal configuration. There is no evidence of disc herniation or spinal canal s tenosis. The neural foramina are patent bilaterally. CONCLUSION: 1. No definite signal abnormalities within the cervical cord. 2. Disc bulging at C5-6 and broad-based protrusion C6-7 without evidence of cord compression. Yordan Sarkar MD on June 27, 2017 at 17:42 Board Certified Radiologist. This report was verified electronically.
[2017-06-27 20:00] VITALS: BP 107/57; PULSE 64; RESP 17; TEMP 96.7; O2SAT 98
[2017-06-27] MEDS: TAMSULOSIN HCL 0.4 MG CAP PO SCH (22:52)
[2017-06-27] MEDS: MIRTAZAPINE 15 MG TAB PO SCH (22:52)
[2017-06-28] VITALS: BP 112/62; PULSE 66; RESP 16; TEMP 97.1; O2SAT 97
[2017-06-28 04:00] VITALS: BP 110/60; PULSE 62; RESP 16; TEMP 97; O2SAT 97
[2017-06-28] MEDS: cefTRIAXone INJ 1,000 MG in SODIUM CHLORIDE 0.9% INJ 100 ML IV SCH (05:54)
[2017-06-28 07:43] LABS: AUTOMATED NEUTROPHIL # 3.8 TH/MM3 (1.8-7.7); BASOPHIL % 0.8 % (0.0-2.0); EOSINOPHIL # 0.3 TH/MM3 (0-0.4); HEMATOCRIT 30.8 % (35.0-46.0); HEMOGLOBIN 10.2 GM/DL (11.6-15.3); LYMPH % 13.2 % (9.0-44.0); LYMPHOCYTE # 0.7 TH/MM3 (1.0-4.8); MEAN CELL VOLUME 100.4 FL (80.0-100.0); MEAN CORPUSCULAR HEMOGLOBIN 33.2 PG (27.0-34.0); MEAN CORPUSCULAR HGB CONC 33.1 % (32.0-36.0); MEAN PLATELET VOLUME 7.7 FL (7.0-11.0); MONO % 8.4 % (0.0-8.0); MONOCYTE # 0.4 TH/MM3 (0-0.9); NEUT % 72.6 % (16.0-70.0); PLATELET COUNT 243 TH/MM3 (150-450); RED BLOOD COUNT 3.07 MIL/MM3 (4.00-5.30); WHITE BLOOD COUNT 5.2 TH/MM3 (4.0-11.0)
[2017-06-28 07:57] VITALS: BP 139/61; PULSE 61; RESP 17; TEMP 96.4; O2SAT 99
[2017-06-28 08:08] LABS: CALCIUM 7.3 MG/DL (8.5-10.1); CREATININE 1.13 MG/DL (0.50-1.00)
[2017-06-28 08:18] LABS: CALCIUM-PROTEIN CORRECTED 8.2 MG/DL (8.5-10.1); TOTAL BILIRUBIN ADULT 0.1 MG/DL (0.2-1.0); TOTAL PROTEIN 5.5 GM/DL (6.4-8.2)
[2017-06-28] MEDS: BACLOFEN 20 MG TAB PO SCH ×4 (08:27→21:24)
[2017-06-28] MEDS: DULoxetine HCl DR 60 MG CAP PO SCH (08:27)
[2017-06-28] MEDS: ESCITALOPRAM OXALATE 20 MG TAB PO SCH (08:27)
[2017-06-28] MEDS: buPROPion HCL 75 MG TAB PO SCH ×2 (08:27→21:24)
[2017-06-28] MEDS: DOCUSATE SODIUM 50 MG/SENNA 8.6 MG TAB PO SCH ×2 (08:27→21:24)
[2017-06-28] MEDS: SODIUM CHLORIDE 0.9% FLUSH 10 ML FLUSH IV FLUSH SCH ×3 (08:28→21:27)
--- NOTE | 2017-06-28 09:58 | HHI.PR ---
Subjective Remarks Follow up urinary retention, UTI. The patient is reporting back pain. She has no other complaints at this time. Objective Vitals Vital Signs Date Time Temp Pulse Resp B/P (MAP) Pulse Ox O2 Delivery O2 Flow Rate FiO2 06/28/17 07:57 96.4 61 17 139/61 (87) 99 06/28/17 04:00 97.0 62 16 110/60 (77) 97 06/28/17 00:00 97.1 66 16 112/62 (79) 97 06/27/17 20:00 96.7 64 17 107/57 (74) 98 06/27/17 19:50 Nasal Cannula 1.00 06/27/17 16:34 96.8 66 17 106/56 (73) 99 06/27/17 11:42 96.4 71 18 118/54 (75) 98 I/O 06/27/17 06/27/17 06/27/17 06/28/17 06/28/17 06/28/17 07:00 15:00 23:00 07:00 15:00 23:00 Intake Total 1861 ml 1434 ml Output Total 225 ml 900 ml Balance 1636 ml 534 ml Intake Oral 500 ml IV Total 1361 ml 1434 ml Output Urine Total 225 ml 900 ml # Bowel Movements 0 Result Diagram: 06/28/17 0710 06/28/17 0705 Imaging Last Impressions Cervical Spine MRI 06/27/17 0000 Signed Impressions: Service Date/Time: Tuesday, June 27, 2017 14:43 - CONCLUSION: 1. No definite signal abnormalities within the cervical cord. 2. Disc bulging at C5- 6 and broad-based protrusion C6-7 without evidence of cord compression. Yordan Sarkar MD Abdomen/Pelvis CT 06/27/17 0000 Signed Impressions: Service Date/Time: Tuesday, June 27, 2017 05:44 - CONCLUSION: 1. No obstruction, free fluid or free air. Bladder decompressed by Husain. 2. Previous cholecystectomy with pneumobilia. 5 cm right renal cyst with nonobstructing 2 mm calcification. 3. Multiple compression deformities in the lumbar spine with mild scoliosis as above. Previous bilateral hip replacement. Omar Ivy MD Objective Remarks General: Elderly female in no acute distress. Sitting up in a chair. Heart: Regular rate and rhythm. No murmur. Lungs: Clear to auscultation bilaterally. No wheezes, rales, or rhonchi. Breathing is nonlabored. Abdomen: Soft, nontender, nondistended. Extremities: No lower extremity edema. Psych: Alert and oriented. Procedures None Urinary Catheter: Yes Assessment to: Continue Husain insert reason: Obstruction/Retention Vascular Central Line Catheter: No A/P Problem List: (1) Urinary retention ICD Code: R33.9 - Retention of urine, unspecified (2) UTI (urinary tract infection) ICD Code: N39.0 - Urinary tract infection, site not specified (3) Failure of outpatient treatment ICD Code: Z78.9 - Other specified health status (4) MS (multiple sclerosis) ICD Code: G35 - Multiple sclerosis Assessment and Plan 1. Urinary retention, recurrent: Appreciate urology recommendations. Husain catheter to remain in place at discharge until follow up with Dr. Méndez as outpatient. Continue IV fluids. Monitor intake/output. Possibly secondary to MS. Appreciate neurology recommendations. 2. UTI, recurrent: Culture pending. Continue Rocephin, IV fluids. 3. Multiple sclerosis: Continue home medications. Continue PT. MRI report noted. 4. DVT prophylaxis: YULY Frye. Discharge Planning Possible discharge to SNF next 1-2 days pending neurology clearance. Cortes Castillo MD Jun 28, 2017 09:58
[2017-06-28 12:01] VITALS: BP 121/62; PULSE 65; RESP 18; TEMP 96.8; O2SAT 95
[2017-06-28] MEDS: SODIUM CHLOR 0.9% 1000 ML INJ 1,000 ML IV SCH ×2 (12:48→21:14)
[2017-06-28 15:54] VITALS: BP 130/60; PULSE 73; RESP 17; TEMP 96.6; O2SAT 99
[2017-06-28] MEDS: MAGNESIUM HYDROXIDE SUSP 30 ML CUP PO PRN (18:22)
[2017-06-28 20:05] VITALS: BP 140/67; PULSE 74; RESP 16; TEMP 98.3; O2SAT 98
[2017-06-28] MEDS: TAMSULOSIN HCL 0.4 MG CAP PO SCH (21:24)
[2017-06-28] MEDS: MIRTAZAPINE 15 MG TAB PO SCH (21:24)
[2017-06-29 00:05] VITALS: BP 103/50; PULSE 62; RESP 18; TEMP 97.6; O2SAT 97
[2017-06-29] MEDS: cefTRIAXone INJ 1,000 MG in SODIUM CHLORIDE 0.9% INJ 100 ML IV SCH (05:31)
[2017-06-29 06:26] LABS: AUTOMATED NEUTROPHIL # 4.7 TH/MM3 (1.8-7.7); BASOPHIL % 0.5 % (0.0-2.0); EOSINOPHIL # 0.4 TH/MM3 (0-0.4); EOSINOPHIL % 5.6 % (0.0-4.0); HEMATOCRIT 28.8 % (35.0-46.0); HEMOGLOBIN 9.9 GM/DL (11.6-15.3); LYMPH % 11.5 % (9.0-44.0); LYMPHOCYTE # 0.7 TH/MM3 (1.0-4.8); MEAN CELL VOLUME 100.4 FL (80.0-100.0); MEAN CORPUSCULAR HEMOGLOBIN 34.7 PG (27.0-34.0); MEAN CORPUSCULAR HGB CONC 34.6 % (32.0-36.0); MONO % 8.6 % (0.0-8.0); MONOCYTE # 0.6 TH/MM3 (0-0.9); NEUT % 73.8 % (16.0-70.0); PLATELET COUNT 245 TH/MM3 (150-450); RED BLOOD COUNT 2.86 MIL/MM3 (4.00-5.30); RED CELL DISTRIBUTION WIDTH 15.1 % (11.6-17.2); WHITE BLOOD COUNT 6.4 TH/MM3 (4.0-11.0)
[2017-06-29 07:03] LABS: BICARBONATE 22.6 MEQ/L (21.0-32.0); CALCIUM 7.7 MG/DL (8.5-10.1); CREATININE 0.99 MG/DL (0.50-1.00)
[2017-06-29 08:00] VITALS: BP 146/69; PULSE 66; RESP 18; TEMP 96.6; O2SAT 99
[2017-06-29] MEDS: DOCUSATE SODIUM 50 MG/SENNA 8.6 MG TAB PO SCH (09:09)
[2017-06-29] MEDS: DULoxetine HCl DR 60 MG CAP PO SCH (09:09)
[2017-06-29] MEDS: BACLOFEN 20 MG TAB PO SCH ×2 (09:09→13:06)
[2017-06-29] MEDS: ESCITALOPRAM OXALATE 20 MG TAB PO SCH (09:09)
[2017-06-29] MEDS: buPROPion HCL 75 MG TAB PO SCH (09:09)
[2017-06-29] MEDS: SODIUM CHLORIDE 0.9% FLUSH 10 ML FLUSH IV FLUSH SCH (09:13)
[2017-06-29] MEDS: MAGNESIUM HYDROXIDE SUSP 30 ML CUP PO PRN (09:24)
[2017-06-29] MEDS: SODIUM CHLOR 0.9% 1000 ML INJ 1,000 ML IV SCH (09:28)
[2017-06-29] MEDS ORDERED: LORA0.5T PO (09:56)
[2017-06-29] MEDS ORDERED: OXYC1TAB36 PO (09:56)
[2017-06-29] MEDS ORDERED: BISACODYL 10 MG SUPP RECTAL ONE (10:00)
--- NOTE | 2017-06-29 10:01 | HHI.DCPOC ---
Discharge Care Plan Diagnosis: (1) MS (multiple sclerosis) (2) UTI (urinary tract infection) (3) Urinary retention Goals to Promote Your Health * To prevent worsening of your condition and complications * To maintain your health at the optimal level Directions to Meet Your Goals Take your medications as prescribed Follow your dietary instruction Follow activity as directed Keep your appointments as scheduled Take your immunizations and boosters as scheduled If your symptoms worsen call your PCP, if no PCP go to Urgent Care Center or Emergency Room Smoking is Dangerous to Your Health. Avoid second hand smoke Call the 24-hour hour crisis hotline for domestic abuse at Cortes Castillo MD Jun 29, 2017 10:01
[2017-06-29] MEDS ORDERED: BACT800T5 PO (10:03)
--- NOTE | 2017-06-29 10:03 | HHI.DS ---
Discharge Summary Admission Date Jun 27, 2017 at 05:21 Discharge Date: Jun 29, 2017 Admitting Diagnosis urinary retention (1) Urinary retention ICD Code: R33.9 - Retention of urine, unspecified (2) UTI (urinary tract infection) ICD Code: N39.0 - Urinary tract infection, site not specified (3) Failure of outpatient treatment ICD Code: Z78.9 - Other specified health status (4) MS (multiple sclerosis) ICD Code: G35 - Multiple sclerosis Procedures None Brief History - From Admission A 76-year-old female with a PMH of Multiple Sclerosis, Anxiety, Parkinson's, COPD and Urinary Retention who to the ER by secondary to urinary retention x5 days and lethargy. Seen in ER on 06/21/17 for similar symptoms, s/p Husain placement and started on Keflex/Pyridium for UTI. Seen by Dr. Méndez in office and started on Flomax w/ removal of Husain. reports pt w/ minimal urine output and c/o abdominal pain. Pt reports pain suprapubic, severe , 8-9/10, non-radiating. S/p Husain placement w/ 200ml urine output. On arrival , BP 169/73, HR 71, O2 sat 97% on RA, Afebrile. CBC essentially unremarkable. Creatinine 1.44, previously 1.03 on 06/21/17. UA with UTI. S/p Rocephin in ER. Follows w/ Dr. Nuñez w/ Neurology for h/o MS CBC/BMP: 06/29/17 0537 06/29/17 0537 Significant Findings Laboratory Tests Test 06/27/17 02:50 06/28/17 07:05 06/28/17 07:10 06/29/17 05:37 Red Blood Count 3.47 MIL/MM3 (4.00-5.30) 3.07 MIL/MM3 (4.00-5.30) 2.86 MIL/MM3 (4.00-5.30) Hemoglobin 11.4 GM/DL (11.6-15.3) 10.2 GM/DL (11.6-15.3) 9.9 GM/DL (11.6-15.3) Hematocrit 33.9 % (35.0-46.0) 30.8 % (35.0-46.0) 28.8 % (35.0-46.0) Neutrophils (%) (Auto) 83.7 % (16.0-70.0) 72.6 % (16.0-70.0) 73.8 % (16.0-70.0) Lymphocytes (%) (Auto) 8.4 % (9.0-44.0) Lymphocytes # (Auto) 0.5 TH/MM3 (1.0-4.8) 0.7 TH/MM3 (1.0-4.8) 0.7 TH/MM3 (1.0-4.8) Urine Color DARK-BROWN (YELLW/STRAW) Urine Protein 30 mg/dL (NEG-TRACE) Urine Nitrite POS (NEG) Urine Bilirubin MOD (NEG) Urine Urobilinogen 8.0 MG/DL (LESS THAN Urine Leukocyte Esterase SMALL (NEG) Urine WBC 62 /hpf (0-5) Urine WBC Clumps FEW (NONE) Urine Bacteria RARE /hpf (NONE) Blood Urea Nitrogen 23 MG/DL (7-18) 20 MG/DL (7-18) Creatinine 1.44 MG/DL (0.50-1.00) 1.13 MG/DL (0.50-1.00) Random Glucose 111 MG/DL (74-106) Calcium Level 7.9 MG/DL (8.5-10.1) 7.3 MG/DL (8.5-10.1) 7.7 MG/DL (8.5-10.1) Chloride Level 113 MEQ/L (98-107) 113 MEQ/L (98-107) 114 MEQ/L (98-107) Estimat Glomerular Filtration Rate 35 ML/MIN (>89) 47 ML/MIN (>89) 54 ML/MIN (>89) Total Protein 5.5 GM/DL (6.4-8.2) Albumin 3.0 GM/DL (3.4-5.0) Aspartate Amino Transf (AST/SGOT) 9 U/L (15-37) Total Bilirubin 0.1 MG/DL (0.2-1.0) Protein Corrected Calcium 8.2 MG/DL (8.5-10.1) Mean Corpuscular Volume 100.4 FL (80.0-100.0) 100.4 FL (80.0-100.0) Monocytes (%) (Auto) 8.4 % (0.0-8.0) 8.6 % (0.0-8.0) Eosinophils (%) (Auto) 5.0 % (0.0-4.0) 5.6 % (0.0-4.0) Mean Corpuscular Hemoglobin 34.7 PG (27.0-34.0) Imaging Last Impressions Cervical Spine MRI 06/27/17 Signed Impressions: Service Date/Time: Tuesday, June 27, 2017 14:43 - CONCLUSION: 1. No definite signal abnormalities within the cervical cord. 2. Disc bulging at C5- 6 and broad-based protrusion C6-7 without evidence of cord compression. Yordan Sarkar MD Abdomen/Pelvis CT 06/27/17 Signed Impressions: Service Date/Time: Tuesday, June 27, 2017 05:44 - CONCLUSION: 1. No obstruction, free fluid or free air. Bladder decompressed by Husain. 2. Previous cholecystectomy with pneumobilia. 5 cm right renal cyst with nonobstructing 2 mm calcification. 3. Multiple compression deformities in the lumbar spine with mild scoliosis as above. Previous bilateral hip replacement. Omar Ivy MD PE at Discharge General: Elderly female in no acute distress. Sitting up in a chair. Heart: Regular rate and rhythm. No murmur. Lungs: Clear to auscultation bilaterally. No wheezes, rales, or rhonchi. Breathing is nonlabored. Abdomen: Soft, nontender, nondistended. Extremities: No lower extremity edema. Psych: Alert and oriented. Pt update on day of discharge The patient reports constipation. Otherwise no complaints this morning. States that she would prefer to go home, but is reluctantly accepting of discharge to senior living facility for rehab. Hospital Course Patient was admitted for management of hypertension, UTI. Neurology was consulted regarding patient's history of multiple sclerosis. Urology was consulted for evaluation of urinary retention. Husain catheter was placed. Recommendations from neurology were to leave the Husain catheter in place until she follows up with her outpatient urologist. She was continued on antibiotics for urinary tract infection. She was cleared for discharge by neurology. Recommendations were made for discharge to senior living facility for rehab. Pt Condition on Discharge: Stable Discharge Disposition: Discharge to SNF Discharge Time: > 30 minutes Discharge Instructions DIET: Follow Instructions for: As Tolerated, No Restrictions Activities you can perform: Regular-No Restrictions Other Activity Instructions: With assistance Follow up Referrals: Neurology - 1 Week with Isaac Nuñez MD PhD PCP Follow-up - 2 Weeks Urology - 1 Week with Jesus Méndez M.d. New Medications: Sulfamethoxazole-Trimethoprim (Bactrim DS) 800-160 Mg Tab 1 TAB PO BID for Infection, #6 TAB 0 Refills Changed Medications: Oxycodone HCl/Acetaminophen (Oxycodone-Acetaminophen 10-325) 10 Mg-325 Mg Tablet 1 TAB PO Q6HR for Pain, #10 TAB 0 Refills (Changed from: Refills: ) Continued Medications: Aspirin (Aspirin) 81 Mg Chew 81 MG CHEW DAILY, TAB 0 Refills Baclofen (Baclofen) 20 Mg Tab 20 MG PO QID for Muscle Spasm, TAB 0 Refills Bupropion HCl (Bupropion HCl) 75 Mg Tab 75 MG PO BID for Control Depression, TAB 0 Refills Calcium Carbonate-Cholecalciferol (Calcium 500 +D) 500-400 Mg-Unit Tab 1 TAB PO DAILY for Calcium Supplement, TAB 0 Refills Carbidopa/Levodopa (Carbidopa-Levo 25-100 mg Odt) 25 Mg-100 Mg Tab.rapdis Cyanocobalamin (B-12) 1,000 Mcg Subl 1000 MCG SL DAILY for Nutritional Supplement, TAB.SL 0 Refills Denosumab Inj (Prolia Inj) 60 Mg/Ml Inj 60 MG SQ Q180D, #1 VIAL [address] (Duloxetine DR) 60 Mg Capdr 60 MG PO DAILY, #30 CAP 0 Refills Escitalopram (Escitalopram) 20 Mg Tab 20 MG PO DAILY, #30 TAB 0 Refills Ipratropium-Albuterol Neb (Duoneb) 0.5-2.5 Mg/3 Ml Neb 1 NEBULE INH Q6HR NEB for Breathing Treatment, #120 NEBULE 0 Refills Lorazepam (Lorazepam) 0.5 Mg Tab 0.5 MG PO DAILY PRN for ANXIETY, #3 TAB 0 Refills (This prescription has been renewed) Mirtazapine (Mirtazapine) 7.5 Mg Tab 7.5 MG PO HS for Depression Control, #30 TAB 0 Refills Ocrelizumab (Ocrevus) 300 Mg/10 Ml Vial Ranitidine (Ranitidine) 150 Mg Tab 150 MG PO DAILY for Heartburn Management, #30 TAB 0 Refills Sennosides (Senna-Tabs) 8.6 Mg Tab 8.6 MG PO DAILY for Constipation, #30 TAB 0 Refills Tamsulosin (Tamsulosin) 0.4 Mg Cap 0.4 MG PO HS for Manage Prostate Problems, #30 CAP 0 Refills Umeclidinium-Vilanterol Inh (Anoro Ellipta Inh) 62.5-25 Mcg/Act Aero 1 PUFF INH DAILY for COPD, #1 INHALER 0 Refills Discontinued Medications: Cephalexin (Keflex) 500 Mg Cap 500 MG PO Q8H for Infection, #30 CAP 0 Refills Phenazopyridine (Pyridium) 100 Mg Tab 100 MG PO Q8H PRN for DYSURIA, #12 TAB 0 Refills Cortes Castillo MD Jun 29, 2017 10:03
[2017-06-29 12:00] VITALS: BP 140/63; PULSE 75; RESP 18; TEMP 96.9; O2SAT 98
[2017-06-29] MEDS ORDERED: FLUCONAZOLE 100 MG TAB PO SCH (13:30)
== END 2017-06-29 15:56 | DRG 690 ==
LOC: NEPE 01:26 → NEDA 05:18 → OBSVTOIN 05:21 → N06A 06:07
PROVIDERS: ADMIT Family Medicine; ATTEND Family Medicine
DX: N39.0 Urinary tract infection, site not specified (principal); G20 Parkinson's disease; G35 Multiple sclerosis; J44.9 Chronic obstructive pulmonary disease, unspecified; R33.9 Retention of urine, unspecified; F41.9 Anxiety disorder, unspecified; K59.00 Constipation, unspecified; I10 Essential (primary) hypertension; Z96.643 Presence of artificial hip joint, bilateral
CPT/HCPCS: 72141; 74176; 80048; 80053; 81001; 85025; 87086; 87106; 96374; J0696; J2270; J2405; J7030

== ENCOUNTER 2017-08-24 06:51 | Day surgery (SDC) | payer OTHER ==
[~2017-08-24] VITALS: Ht 152.4 cm; Wt 51.4 kg
[~2017-08-24 06:51] MED LIST changes: +BACT800T5 PO; -CEPH-460 PO; -ONDA4TAB15; -OXYC1TAB36; +OXYC1TAB36 PO; -PHEN0.4T PO; -TYLE325T PO
[2017-08-24] MEDS ORDERED: SODIUM CHLORIDE 0.9% 1000 ML IV SCH (07:00)
[2017-08-24 07:08] VITALS: BP 162/73; PULSE 73; RESP 18; TEMP 98.1; O2SAT 95
[2017-08-24] MEDS ORDERED: CEFAZOLIN INJ 2,000 MG in SODIUM CHLORIDE 0.9% INJ 100 ML IV SCH (07:30)
[2017-08-24] MEDS ORDERED: VANCOMYCIN 1000 MG/NS 250 ML - implanted port/tunneled catheter IV SCH ×2 (07:30)
[2017-08-24] MEDS ORDERED: POVIDONE IODINE 5% (ANTISEPSIS KIT) 4 APPLICATIONS EACH NARE SCH (07:30)
[2017-08-24] MEDS ORDERED: CHLORHEXIDINE GLUCONATE 2 % 1 PACK (2 CLOTHS) TOPICAL SCH (07:30)
[2017-08-24] MEDS ORDERED: AMLO5CAP PO (07:43)
[2017-08-24] MEDS ORDERED: TYLE325T PO (07:43)
[2017-08-24] MEDS ORDERED: ZOFR4TAB PO (07:43)
[2017-08-24 08:05] LABS: AUTOMATED NEUTROPHIL # 8.4 TH/MM3 (1.8-7.7); BASOPHIL % 0.4 % (0.0-2.0); EOSINOPHIL # 0.3 TH/MM3 (0-0.4); EOSINOPHIL % 3.3 % (0.0-4.0); HEMATOCRIT 35.1 % (35.0-46.0); HEMOGLOBIN 11.6 GM/DL (11.6-15.3); LYMPH % 7.7 % (9.0-44.0); LYMPHOCYTE # 0.8 TH/MM3 (1.0-4.8); MEAN CELL VOLUME 98.5 FL (80.0-100.0); MEAN CORPUSCULAR HEMOGLOBIN 32.6 PG (27.0-34.0); MEAN CORPUSCULAR HGB CONC 33.1 % (32.0-36.0); MEAN PLATELET VOLUME 8.1 FL (7.0-11.0); MONO % 6.4 % (0.0-8.0); MONOCYTE # 0.6 TH/MM3 (0-0.9); NEUT % 82.2 % (16.0-70.0); PLATELET COUNT 237 TH/MM3 (150-450); RED BLOOD COUNT 3.57 MIL/MM3 (4.00-5.30); RED CELL DISTRIBUTION WIDTH 15.1 % (11.6-17.2); WHITE BLOOD COUNT 10.2 TH/MM3 (4.0-11.0)
[2017-08-24 08:17] LABS: PROTHROMBIN TIME - PATIENT 9.7 SEC (9.8-11.6)
[2017-08-24] MEDS ORDERED: MIDAZOLAM HCL 5 MG/5 ML VIAL ONE (08:43)
[2017-08-24] MEDS ORDERED: fentaNYL CITRATE 250 MCG/5 ML AMP ONE (08:44)
[2017-08-24] MEDS ORDERED: LIDOCAINE 1%/EPINEPHrine 1:100,000 SOLN 30 ML VIAL ONE (08:53)
[2017-08-24 09:50] VITALS: BP 142/53; PULSE 60; RESP 16; TEMP 97.8; O2SAT 93
[2017-08-24 10:05] VITALS: BP 133/54; PULSE 60; RESP 16; O2SAT 93
--- NOTE | 2017-08-24 10:07 | PD.RAD ---
Post Procedure Progress Note Pre Procedure Diagnosis: (1) MS (multiple sclerosis) Post Procedure Diagnosis: (1) MS (multiple sclerosis) Procedure Date: Aug 24, 2017 Supervising Radiologist: William Tracy Proceduralist/Assist: RT Vitaly(R)() Anesthesia: Conscious Sedation Plan of Activity Patient to Unit: ROPU Patient Condition: Good See PACS Report for procedural detail/treatment Central Venous Access Device Procedure 1 Right Internal Jugular Infusaport Placement single lumen William Tracy MD Aug 24, 2017 10:07
[2017-08-24] MEDS ORDERED: SODIUM CHLORIDE 0.9% FLUSH 10 ML FLUSH IVF PRN (10:15)
[2017-08-24 10:35] VITALS: BP 132/58; PULSE 58; RESP 16; O2SAT 93
[2017-08-24 11:05] VITALS: BP 128/58; PULSE 60; RESP 16; O2SAT 93
--- NOTE | 2017-08-24 11:19 | RADRPT ---
EXAM DATE/TIME: 08/24/2017 08:12 [facility] COMPARISON: No previous studies available for comparison. INDICATIONS : Patient presents with multiple sclerosis in need of port placement for treatment. MEDICAL HISTORY : MS HTN Anxiety COPD High cholesterol Migraine Parkinsons SURGICAL HISTORY : Colostomy with reversal Bilateral hip replacment Cholecystectomy ENCOUNTER: Initial ACUITY: >1 year PAIN SCORE: 0/10 LOCATION: N/A FLUORO TIME: 0.4 minutes IMAGE SERIES: 1 SEDATION TIME: 30 minutes ACCESS: Right internal jugular vein SEDATION: 1.) 2 midazolam (Versed) IV 2.) 125 fentanyl (Sublimaze) IV Prophylactic antibiotics were administered with appropriate pre-procedure timing. Vancomycin within 2 hours of procedure, Ancef (or alternative) within 1 hour of procedure. DEVICE: 1. 8 Israeli single lumen Bioflo Port PROCEDURE : 1. Continuous pulse oximetry and EKG monitoring. 2. Intravenous conscious sedation. 3. Ultrasound guidance for venous access. 4. Fluoroscopic guided implantable central venous port placement. The patient was placed supine. The neck was prepped in sterile fashion. Full sterile technique was u sed, including cap, mask, sterile gloves and gown, and a large sterile sheet. Hand hygiene and 2% ch lorhexidine Betadine was utilized per protocol for cutaneous antisepsis with appropriate dry time for site. Sterile gel and sterile probe cover were utilized for ultrasound guidance. The skin and sub cutaneous tissues were infiltrated with local anesthetic solution. Under direct ultrasound guidance, central venous access was accomplished in the targeted vessel. The ultrasound images depicting access guidance were stored and saved to PACS for permanent record. A s ubcutaneous pocket was created using blunt dissection. The port was introduced to the pocket. The c atheter tubing was fed through a subcutaneous tunnel to the venotomy site. The catheter tubing was c ut to a suitable length and then was introduced through a valved Peel-Away sheath and positioned with catheter tubing tip at the cavo-atrial junction level. The pocket incision was closed with subcutic ular Vicryl suture. Steri-Strips were applied. The port was flushed and locked with heparin solutio n per protocol. Sterile dressing was applied to the site. The patient tolerated the procedure well. Conscious sedation was performed with the prescribed dosages and duration as above in the presence of an independent trained radiology nurse to assist in the monitoring of the patient. EKG and oximetry remained stable throughout the procedure. The patient tolerated the procedure well and there were no complications. The patient was sent to post anesthesia recovery in stable condition. CONCLUSION: Uncomplicated ultrasound and fluoroscopic guided implanted central venous port catheter placement as described in detail above. An 8 Israeli Power port was placed. William Tracy MD on August 24, 2017 at 11:16 Board Certified Radiologist. This report was verified electronically.
[2017-08-24 11:35] VITALS: BP 122/59; PULSE 58; RESP 16; O2SAT 93
== END 2017-08-24 12:30 | disposition home health service (06) ==
LOC: HROP 06:51 → HRIP 06:59 → HROP 12:30
PROVIDERS: ATTEND Specialist
DX: Z45.2 Encounter for adjustment and management of vascular access device (principal); G35 Multiple sclerosis; G20 Parkinson's disease; I10 Essential (primary) hypertension; J44.9 Chronic obstructive pulmonary disease, unspecified; E78.00 Pure hypercholesterolemia, unspecified; F41.9 Anxiety disorder, unspecified
CPT/HCPCS: 36561; 76937; 77001; 85025; 85610; 85730; 99152; 99153; C1788; J0690; J1642; J2250; J3010; J3370; J7030; J7050